=== PATIENT | female | born 1940 | race Caucasian/White ===

== ENCOUNTER → 2016-03-10 | Outpatient (CLI) | payer BC ==
[~2016-03-10] MED LIST: AMIL5TAB15 PO; ASPI325T39 PO; CHOL100010 PO; CRS10 PO; IBUP-1450 PO; INSU70IN2 SC; LOSA100T65 PO; MAGNESIUM CHLORIDE PO; METF1TAB53 PO; METO200T32 PO; NEPA0.6D OPL; PRED1SUS OPL
[2016-03-10 12:43] LABS: URINE APPEARANCE CLEAR (CLEAR); URINE BILIRUBIN NEG (NEG); URINE COLOR YELLOW; URINE EPITHELIAL CELL AUTO 20-30 /lpf (0-5); URINE NITRITE NEG (NEG); URINE SPECIFIC GRAVITY 1.016 (1.000-1.030); UROBILINOGEN NEG (NEG)
[2016-03-10 12:44] LABS: MANUAL MICROSCOPIC REQUIRED? NO; REVIEW REQ? NO
[2016-03-10 12:49] LABS: BLOOD UREA NITROGEN 15 mg/dl (7-18); CALCIUM 9.7 mg/dl (8.5-10.1); CARBON DIOXIDE 23 mmol/L (21-32); CHLORIDE 106 mmol/L (98-107); GLUCOSE 100 mg/dl (70-99); MAGNESIUM 1.7 mg/dl (1.8-2.4); PHOSPHORUS 3.4 mg/dl (2.5-4.9); POTASSIUM 4.6 mmol/L (3.5-5.1); SODIUM 138 mmol/L (136-145)
[2016-03-10 13:02] LABS: ESTIMATED AVERAGE GLUCOSE 171 mg/dl; HA1C FLAG Normal (Normal)
[2016-03-10 13:12] LABS: URINE PROTIEN/CREAT RATIO 0.3 (0-0.2); URINE TOTAL PROTEIN 39.9 mg/dl (0-11.9)
== END | disposition home or self-care (01) ==
LOC: C.LABPVFM 10:22
PROVIDERS: ATTEND Internal Medicine Nephrology
DX: E55.9 Vitamin D deficiency, unspecified (principal); E11.9 Type 2 diabetes mellitus without complications; E78.5 Hyperlipidemia, unspecified; E83.42 Hypomagnesemia; R80.9 Proteinuria, unspecified

== ENCOUNTER → 2016-04-12 | Outpatient (CLI) | payer BC ==
[~2016-04-12] MED LIST changes: +METO1TAB71 PO; -METO200T32 PO
== END | disposition home or self-care (01) ==
LOC: C.LABPVFM 11:11
PROVIDERS: ATTEND Internal Medicine Nephrology
DX: E83.42 Hypomagnesemia (principal)

== ENCOUNTER → 2016-04-28 | Outpatient (CLI) | payer BC ==
--- NOTE | 2016-04-28 15:27 | DIAGNOSTIC IMAGING REPORT ---
ABDOMEN 2VIEW W/PA CHEST RTN CLINICAL HISTORY: Abdominal pain pain COMPARISON STUDY: 11/30/2013 FINDINGS: Nonobstructive bowel pattern. Calcification immediately to the left of the L4 vertebral body felt to represent bowel content. No secondary signs of free air. A potential minimal infiltrative process left base. IMPRESSION: Minimal infiltrate left base. No acute process of the abdomen. Electronically signed by: Jamal Flores M.D. 04/28/2016 3:26 PM Dictated Date/Time: 04/28/2016 3:25 PM
== END | disposition home or self-care (01) ==
LOC: C.RADPV 14:55
PROVIDERS: ATTEND Family Medicine
DX: R10.9 Unspecified abdominal pain (principal)

== ENCOUNTER → 2016-05-04 | Outpatient (CLI) | payer BC ==
--- NOTE | 2016-05-04 09:27 | DIAGNOSTIC IMAGING REPORT ---
ABDOMINAL ULTRASOUND, RIGHT UPPER QUADRANT HISTORY: Pain. Nausea. R10.9 Abdominal [id number]. COMPARISON: None. FINDINGS: Pancreas: The pancreas demonstrates a normal echotexture. Liver: Fatty infiltration Gallbladder: Moderate sludge CBD: 5 mm Right kidney: No evidence for hydronephrosis. 2 cm mid pole cyst. IMPRESSION: 1. Gallbladder sludge. 2. Normal caliber bile ducts. 3. 2 cm mid pole right renal cyst. 4. Fatty infiltration of liver. Electronically signed by: Jamal Flores M.D. 05/04/2016 9:26 AM Dictated Date/Time: 05/04/2016 9:24 AM
== END | disposition home or self-care (01) ==
LOC: C.ULTR 08:25
PROVIDERS: ATTEND Family Medicine
DX: R10.9 Unspecified abdominal pain (principal); N28.1 Cyst of kidney, acquired; K76.0 Fatty (change of) liver, not elsewhere classified

== ENCOUNTER → 2016-05-17 | Outpatient (CLI) | payer BC ==
[2016-05-17 18:08] LABS: BLOOD UREA NITROGEN 13 mg/dl (7-18); BUN/CREATININE RATIO 12.9 (10-20); CALCIUM 9.5 mg/dl (8.5-10.1); CARBON DIOXIDE 23 mmol/L (21-32); CHLORIDE 104 mmol/L (98-107); GLUCOSE 179 mg/dl (70-99); MAGNESIUM 1.5 mg/dl (1.8-2.4); PHOSPHORUS 3.6 mg/dl (2.5-4.9); POTASSIUM 4.5 mmol/L (3.5-5.1); SODIUM 138 mmol/L (136-145)
== END | disposition home or self-care (01) ==
LOC: C.LABPVFM 13:52
PROVIDERS: ATTEND Internal Medicine Nephrology
DX: E83.42 Hypomagnesemia (principal)

== ENCOUNTER → 2016-08-23 | Outpatient (CLI) | payer BC ==
[~2016-08-23] MED LIST changes: +METO-649 PO; -METO1TAB71 PO
[2016-08-23 13:21] LABS: CALCIUM 9.6 mg/dl (8.5-10.1)
[2016-08-23 13:27] LABS: ESTIMATED AVERAGE GLUCOSE 157 mg/dl; HA1C FLAG Normal (Normal)
[2016-08-23 13:29] LABS: ALT/SGPT 44 U/L (12-78); BLOOD UREA NITROGEN 15 mg/dl (7-18); BUN/CREATININE RATIO 15.6 (10-20); CARBON DIOXIDE 21 mmol/L (21-32); CHLORIDE 109 mmol/L (98-107); CHOLESTEROL 118 mg/dl (0-200); CREATININE 0.98 mg/dl (0.60-1.20); GLUCOSE 118 mg/dl (70-99); MAGNESIUM 1.5 mg/dl (1.8-2.4); POTASSIUM 4.7 mmol/L (3.5-5.1); SODIUM 140 mmol/L (136-145); TRIGLYCERIDES 237 mg/dl (0-150); VERY LOW DENSITY LIPOPROT CALC 47 mg/dl
[2016-08-23 13:39] LABS: ALB/GLOB RATIO 0.8 (0.9-2); ALKALINE PHOSPHATASE 86 U/L (45-117); AST/SGOT 38 U/L (15-37); HDL CHOLESTEROL 40 mg/dl; LDL CHOLESTEROL CALCULATED 31 mg/dl
== END | disposition home or self-care (01) ==
LOC: C.LABPVFM 09:15
PROVIDERS: ATTEND Family Medicine
DX: Z00.00 Encounter for general adult medical examination without abnormal findings (principal); E11.9 Type 2 diabetes mellitus without complications; E83.42 Hypomagnesemia; I10 Essential (primary) hypertension; E78.5 Hyperlipidemia, unspecified; I25.10 Atherosclerotic heart disease of native coronary artery without angina pectoris; R25.2 Cramp and spasm

== ENCOUNTER → 2016-09-27 | Outpatient (CLI) | payer BC ==
[~2016-09-27] MED LIST changes: -METO-649 PO; +METO1TAB71 PO
--- NOTE | 2016-09-28 13:30 | MAMMOGRAPHY REPORT ---
BILATERAL DIGITAL SCREENING MAMMOGRAM WITH CAD: 09/27/2016 CLINICAL HISTORY: Routine screening. TECHNIQUE: Current study was also evaluated with a Computer Aided Detection (CAD) system. Bilateral CC and MLO views were obtained. COMPARISON: Comparison is made to exams dated: 06/11/2015 mammogram, 10/10/2012 mammogram, 08/09/2011 mamm ogram, 05/21/2010 mammogram, 05/14/2009 mammogram - [facility], and 03/27/2008. BREAST COMPOSITION: There are scattered areas of fibroglandular density in both breasts. FINDINGS: No suspicious masses, calcifications, or areas of architectural distortion are noted in ei ther breast. There has been no significant interval change compared to prior exams. Scattered bilater al benign-appearing calcifications are not significantly changed. A biopsy marker clip is again note d in the right upper outer quadrant from prior benign stereotactic biopsy. A linear scar marker bettina marge a scar on the left breast. IMPRESSION: ACR BI-RADS CATEGORY 2: BENIGN There is no mammographic evidence of malignancy. A 1 year screening mammogram is recommended. The pa tient will receive written notification of the results. Approximately 10% of breast cancers are not detected with mammography. A negative mammographic report should not delay biopsy if a clinically suggestive mass is present. Debra Noguera M.D. ah/:09/27/2016 16:13:01 [employer]: Barbara FISCHER(R)(M), [facility] letter sent: Normal 1/2 BI-RADS Code: ACR BI-RADS Category 2: Benign
== END | disposition home or self-care (01) ==
LOC: C.MAMM 14:23
PROVIDERS: ATTEND Family Medicine
DX: Z12.31 Encounter for screening mammogram for malignant neoplasm of breast (principal)

== ENCOUNTER → 2016-09-29 | Day surgery (SDC) | payer BC ==
[2016-09-10 15:07] VITALS: Ht 157.5 cm; Wt 81.0 kg
[~2016-09-29] VITALS: Ht 157.5 cm; Wt 81.0 kg
[~2016-09-29] MED LIST changes: +500ML BSS 0.3ML EPI 1:1000PF IRRIG ONE; +ACETAMINOPHEN 325 MG TAB PO PRN; +AMVISC PLUS 0.8ML SYRINGE INT OCU ONE; +ATROPINE SULFATE 0.1 MG/ML 5ML SYR IV PRN; +AcetaZOLAMIDE 250 MG TAB PO SCH; +BETAXOLOL HCL 0.25% OP SUSP PER DROP CHARGE OPL SCH; +BRIMONIDINE TART 0.2% OP SOLN PER DROP CHARGE ONE; +BSS FLUSH ONE; +ENDOCOAT 0.85ML SYRINGE INT OCU ONE; +EpHEDrine SULFATE INJ 50 MG/ML AMP IV PRN; +EpINEphrine INJ 1MG/ML AMP 1 MG/ML AMP ONE; +LACTATED RINGER'S 1000ML 500 ML IV SCH; +LIDOCAINE 4% OP SOLN DROP CHARGE ONE; +LIDOCAINE 4% OP SOLN DROP CHARGE OPL SCH; +LIDOCAINE HCL 1% MPF 2 ML VIAL ONE; +MIDAZOLAM HCL 1 MG/ML 2ML VIAL ONE; +MIX: 4ML BSS 1ML EPI 1:1000 PF INSTIL ONE; +MOXIFLOXACIN OPH SOLN PER DROP CHARGE ONE; +OCUCOAT 1 ML SOLN IO ONE; +POVIDONE-IODINE OP SOLN 30 ML BTL ONE; +PROPARACAINE 0.5% OP SOLN PER DROP CHARGE OPL SCH; +TOBRAMYCIN/DEXAMETHASONE OPH OINT PER APPLN CHARGE ONE
[2016-09-29] MEDS: PHENYLEPHRINE HCL 2.5% OP SOLN PER DROP CHARGE OPL SCH ×2 (08:43→08:48)
[2016-09-29] MEDS: TROPICAMIDE 1% OP SOLN PER DROP CHARGE OPL SCH ×2 (08:44→08:49)
[2016-09-29] MEDS: CYCLOPENTOLATE HCL 1% OP SOLN PER DROP CHARGE OPL SCH ×2 (08:45→08:50)
[2016-09-29] MEDS: MOXIFLOXACIN OPH SOLN PER DROP CHARGE OPL SCH ×2 (08:46→08:56)
--- NOTE | 2016-09-29 09:08 | History & Physical Bridge - SC ---
H&P Re-Evaluation Bridge Note: I have examined the patient, reviewed the History & Physical and in the interval since the performance of the History & Physical I have noted the following changes of clinical significance: No changes noted
--- NOTE | 2016-09-29 09:58 | Discharge Instructions-SurgCtr ---
Discharge Instructions Date of Service Sep 29, 2016. Visit Reason for Visit: Cataract Left Eye Discharge Discharge Diagnosis / Problem: lens implant left eye Discharge Goals Goal(s): Improve function Medications Stopped Medications Name(s): METFORMIN- LAST DOSE TUESDAY Activity Recommendations Activity Limitations: resume your previous activity Lifting Limitations: no more than 10 pounds Exercise/Sports Limitations: gradually increase as tolerated May Resume Sexual Activity: when tolerated Shower/Bathe: tomorrow Driving or Machine Use: resume 1 day after discharge Anesthesia . Post Anesthesia Instructions: If you have had General Anesthesia or IV Sedation: * Do not drive today. * Resume driving when surgeon permits. * Do not make important decisions or sign legal documents today. * Call surgeon for: 1. Temperature elevations greater than 101 degrees F. 2. Uncontrollable pain. 3. Excessive bleeding. 4. Persistent nausea and vomiting. 5. Medication intolerance (nausea, vomiting or rash). * For nausea and vomiting use only clear liquids such as: tea, soda, bouillon until nausea subsides, then gradually increase diet as tolerated. * If you have any concerns or questions, call your surgeon's office. If physician is unavailable and it is an emergency, call 911 or go to the nearest emergency room. . Instructions / Follow-Up Instructions / Follow-Up ACTIVITY RECOMMENDATIONS: * Light activities. * Mild irritation and blurred vision are common for the first few days. * You may walk outside, read, watch television. * Redness around the white part of the eye is common. MEDICATIONS: Resume previous medications unless instructed otherwise by your surgeon. * Take white Diamox (Acetazolamide) tablet at 1 pm today. Start all eye drops at 1 pm today: * Eye drops (today and tomorrow): Prednisone - one drop in operative eye every 3 hours while awake Ofloxacin - one drop in operative eye every 3 hours while awake Ilevro - one drop in operative eye once a day SPECIAL CARE INSTRUCTIONS: * Tape plastic shield over eye to sleep at night. Call your doctor at with any concerns or problems. FOLLOW UP VISIT: Follow-up with Dr Parker at [place] office as scheduled. Diet Recommendations Home Diet: no limitations Procedures Procedures Performed: cataract extraction with lens implant Pending Studies Studies pending at discharge: no Medical Emergencies . Who to Call and When: Medical Emergencies: If at any time you feel your situation is an emergency, please call 911 immediately. . Non-Emergent Contact Non-Emergency issues call your: Terminal Supervisor Call Non-Emergent contact if: your pain is not controlled [phone] . . "Provider Documentation" section prepared by Keyur Parker. .
--- NOTE | 2016-09-29 10:00 | [facility] Operative Report ---
Operative Report Date of Service Sep 29, 2016. Operative Report 1. PREOPERATIVE DIAGNOSIS: Senile nuclear cataract, left eye. 2. POSTOPERATIVE DIAGNOSIS: Senile nuclear cataract, left eye. 3. PROCEDURE: Phacoemulsification of left cataract with posterior chamber lens implant, type Davide, model [id number], power +22.0 diopters. ANESTHESIA: Local standby. SURGEON: Dr. Parker. COMPLICATIONS: None. OPERATING TIME: 10 minutes. 4. OPERATION AND FINDINGS: DESCRIPTION OF PROCEDURE: The left pupil was dilated. The anesthetic was administered using a topical technique. The left eye was prepped and draped. A speculum was placed. A clear corneal incision was formed. The chamber was filled with Amvisc Plus and Endocoat. Epinephrine solution was used. A paracentesis was placed. A capsulorrhexis was performed. The nucleus was hydrodissected. The lens was removed with phacoemulsification. Time was 5.89 seconds. The aspiration unit was used to remove the cortex. The capsule was filled with Amvisc Plus. The lens implant was folded and placed into the capsule. The lens implant was rotated to the correct position. The incision was hydrated. The Amvisc was aspirated. The wound was secure. The chamber was deep. The pupil was round. Brimonidine, TobraDex ointment and Vigamox solution were placed. The speculum was removed. The patient was returned to the Recovery Room in stable condition. I attest to the content of the Intraoperative Record and any orders documented therein. Any exceptions are noted below. The scribe's documentation has been prepared in my presence, under my direction and personally reviewed by me in its entirety. I confirm that the note above accurately reflects all work, treatment, procedures, and medical decision making performed by me. I personally scribed for Keyur Parker M.D. ([email or web address]) on 09/29/16 at 10:00. Electronically submitted by Adamaris VIRGEN).
[2016-09-29 10:03] VITALS: TEMP 36.3
--- NOTE | 2016-09-29 10:14 | Anesthesia Progress Nt - [facility] ---
Anesthesia Post Op Note Date & Time Sep 29, 2016 at 10:14 Vital Signs Pain Intensity: 0 Vital Signs Past 12 Hours Date Time Temp Pulse Resp B/P (MAP) Pulse Ox O2 Delivery O2 Flow Rate FiO2 09/29/16 10:03 36.3 65 16 139/57 (84) 95 Room Air 09/29/16 08:35 36.8 62 16 145/70 (95) 95 Room Air Notes Mental Status: alert / awake / arousable, participated in evaluation Pt Amnestic to Procedure: Yes Nausea / Vomiting: adequately controlled Pain: adequately controlled Airway Patency, RR, SpO2: stable & adequate BP & HR: stable & adequate Hydration State: stable & adequate Anesthetic Complications: no major complications apparent
[2016-09-29 10:48] VITALS: BP 108/70; PULSE 58; O2SAT 96
== END | disposition home or self-care (01) ==
LOC: X.SURG 08:20
PROVIDERS: ATTEND Specialist
DX: H25.12 Age-related nuclear cataract, left eye (principal); I10 Essential (primary) hypertension; I51.9 Heart disease, unspecified

== ENCOUNTER → 2016-10-20 | Day surgery (SDC) | payer BC ==
[2016-10-08 11:51] VITALS: Ht 157.5 cm; Wt 80.0 kg
[~2016-10-20] VITALS: Ht 157.5 cm; Wt 80.0 kg
[~2016-10-20] MED LIST changes: -BETAXOLOL HCL 0.25% OP SUSP PER DROP CHARGE OPL SCH; +BETAXOLOL HCL 0.25% OP SUSP PER DROP CHARGE OPR SCH; -LIDOCAINE 4% OP SOLN DROP CHARGE OPL SCH; +LIDOCAINE 4% OP SOLN DROP CHARGE OPR SCH; +NURSING VERBAL MED ORDER ONE; +ONDANSETRON INJ 2 MG/ML 2 ML VIAL IV PRN; -PROPARACAINE 0.5% OP SOLN PER DROP CHARGE OPL SCH; +PROPARACAINE 0.5% OP SOLN PER DROP CHARGE OPR SCH
[2016-10-20] MEDS: PHENYLEPHRINE HCL 2.5% OP SOLN PER DROP CHARGE OPR SCH ×2 (07:48→07:53)
[2016-10-20] MEDS: TROPICAMIDE 1% OP SOLN PER DROP CHARGE OPR SCH ×2 (07:49→07:54)
[2016-10-20] MEDS: CYCLOPENTOLATE HCL 1% OP SOLN PER DROP CHARGE OPR SCH ×2 (07:50→07:55)
[2016-10-20] MEDS: MOXIFLOXACIN OPH SOLN PER DROP CHARGE OPR SCH ×2 (07:51→08:03)
[2016-10-20 09:06] VITALS: TEMP 36.7
--- NOTE | 2016-10-20 09:08 | Discharge Instructions-SurgCtr ---
Discharge Instructions Date of Service Oct 20, 2016. Visit Reason for Visit: Right Cataract Discharge Discharge Diagnosis / Problem: lens implant right eye Discharge Goals Goal(s): Improve function Medications Stopped Medications Name(s): metformin stopped last dose on tuesday. Activity Recommendations Activity Limitations: resume your previous activity Lifting Limitations: no more than 10 pounds Exercise/Sports Limitations: gradually increase as tolerated May Resume Sexual Activity: when tolerated Shower/Bathe: tomorrow Driving or Machine Use: resume 1 day after discharge Anesthesia . Post Anesthesia Instructions: If you have had General Anesthesia or IV Sedation: * Do not drive today. * Resume driving when surgeon permits. * Do not make important decisions or sign legal documents today. * Call surgeon for: 1. Temperature elevations greater than 101 degrees F. 2. Uncontrollable pain. 3. Excessive bleeding. 4. Persistent nausea and vomiting. 5. Medication intolerance (nausea, vomiting or rash). * For nausea and vomiting use only clear liquids such as: tea, soda, bouillon until nausea subsides, then gradually increase diet as tolerated. * If you have any concerns or questions, call your surgeon's office. If physician is unavailable and it is an emergency, call 911 or go to the nearest emergency room. . Instructions / Follow-Up Instructions / Follow-Up ACTIVITY RECOMMENDATIONS: * Light activities. * Mild irritation and blurred vision are common for the first few days. * You may walk outside, read, watch television. * Redness around the white part of the eye is common. MEDICATIONS: Resume previous medications unless instructed otherwise by your surgeon. * Take white Diamox (Acetazolamide) tablet at 1 pm today. Start all eye drops at 1 pm today: * Eye drops (today and tomorrow): Prednisone - one drop in operative eye every 3 hours while awake Ofloxacin - one drop in operative eye every 3 hours while awake Ilevro - one drop in operative eye once a day SPECIAL CARE INSTRUCTIONS: * Tape plastic shield over eye to sleep at night. Call your doctor at with any concerns or problems. FOLLOW UP VISIT: Follow-up with Dr Parker at [place] office as scheduled. Diet Recommendations Home Diet: no limitations Procedures Procedures Performed: Right Cataract Phacoemulsification With Intraocular Lens Implant, Toric Lens Pending Studies Studies pending at discharge: no Medical Emergencies . Who to Call and When: Medical Emergencies: If at any time you feel your situation is an emergency, please call 911 immediately. . Non-Emergent Contact Non-Emergency issues call your: Supervisor Coal Handling Call Non-Emergent contact if: your pain is not controlled [phone] . . "Provider Documentation" section prepared by Keyur Parker. .
--- NOTE | 2016-10-20 09:10 | [facility] Operative Report ---
Operative Report Date of Service Oct 20, 2016. Operative Report 1. PREOPERATIVE DIAGNOSIS: Senile nuclear cataract, right eye. 2. POSTOPERATIVE DIAGNOSIS: Senile nuclear cataract, right eye. 3. PROCEDURE: Phacoemulsification of right cataract with posterior chamber lens implant, type Davide, model [id number], power +22.0 diopters. ANESTHESIA: Local standby. SURGEON: Dr. Parker. COMPLICATIONS: None. OPERATING TIME: 10 minutes. 4. OPERATION AND FINDINGS: DESCRIPTION OF PROCEDURE: The right pupil was dilated. The anesthetic was administered using a topical technique. The right eye was prepped and draped. A speculum was placed. A clear corneal incision was formed. The chamber was filled with Amvisc Plus and Endocoat. Epinephrine solution was used. A paracentesis was placed. A capsulorrhexis was performed. The nucleus was hydrodissected. The lens was removed with phacoemulsification. Time was 4.62 seconds. The aspiration unit was used to remove the cortex. The capsule was filled with Amvisc Plus. The lens implant was folded and placed into the capsule. The lens was rotated to the correct position. The incision was hydrated. The Amvisc was aspirated. The wound was secure. The chamber was deep. The pupil was round. Brimonidine, TobraDex ointment and Vigamox solution were placed. The speculum was removed. The patient was returned to the Recovery Room in stable condition. I attest to the content of the Intraoperative Record and any orders documented therein. Any exceptions are noted below. The scribe's documentation has been prepared in my presence, under my direction and personally reviewed by me in its entirety. I confirm that the note above accurately reflects all work, treatment, procedures, and medical decision making performed by me. I personally scribed for Keyur Parker M.D. ([email or web address]) on 10/20/16 at 09:10. Electronically submitted by Adamaris Kay ([email or web address]).
[2016-10-20 09:34] VITALS: BP 119/73; PULSE 60; O2SAT 93
[2016-10-20] MEDS: PROPARACAINE 0.5% OP SOLN PER DROP CHARGE OPR SCH ×2 (09:38→09:43)
--- NOTE | 2016-10-20 09:51 | Anesthesia Progress Nt - [facility] ---
Anesthesia Post Op Note Date & Time Oct 20, 2016 at 09:51 Vital Signs Pain Intensity: 0 Vital Signs Past 12 Hours Date Time Temp Pulse Resp B/P (MAP) Pulse Ox O2 Delivery O2 Flow Rate FiO2 10/20/16 09:06 36.7 66 16 147/81 (103) 94 Room Air 10/20/16 07:38 36.5 59 18 133/84 (100) 96 Room Air Notes Mental Status: alert / awake / arousable, participated in evaluation Pt Amnestic to Procedure: Yes Nausea / Vomiting: adequately controlled Pain: adequately controlled Airway Patency, RR, SpO2: stable & adequate BP & HR: stable & adequate Hydration State: stable & adequate Anesthetic Complications: no major complications apparent
== END | disposition home or self-care (01) ==
LOC: X.SURG 07:10
PROVIDERS: ATTEND Specialist
DX: H25.11 Age-related nuclear cataract, right eye (principal); Z79.4 Long term (current) use of insulin; Z79.84 Long term (current) use of oral hypoglycemic drugs; Z79.899 Other long term (current) drug therapy

== ENCOUNTER → 2016-11-23 | Outpatient (CLI) | payer BC ==
[~2016-11-23] MED LIST changes: -500ML BSS 0.3ML EPI 1:1000PF IRRIG ONE; -ACETAMINOPHEN 325 MG TAB PO PRN; -AMVISC PLUS 0.8ML SYRINGE INT OCU ONE; -ATROPINE SULFATE 0.1 MG/ML 5ML SYR IV PRN; -AcetaZOLAMIDE 250 MG TAB PO SCH; -BETAXOLOL HCL 0.25% OP SUSP PER DROP CHARGE OPR SCH; -BRIMONIDINE TART 0.2% OP SOLN PER DROP CHARGE ONE; -BSS FLUSH ONE; -ENDOCOAT 0.85ML SYRINGE INT OCU ONE; -EpHEDrine SULFATE INJ 50 MG/ML AMP IV PRN; -EpINEphrine INJ 1MG/ML AMP 1 MG/ML AMP ONE; -LACTATED RINGER'S 1000ML 500 ML IV SCH; -LIDOCAINE 4% OP SOLN DROP CHARGE ONE; -LIDOCAINE 4% OP SOLN DROP CHARGE OPR SCH; -LIDOCAINE HCL 1% MPF 2 ML VIAL ONE; -MIDAZOLAM HCL 1 MG/ML 2ML VIAL ONE; -MIX: 4ML BSS 1ML EPI 1:1000 PF INSTIL ONE; -MOXIFLOXACIN OPH SOLN PER DROP CHARGE ONE; -NURSING VERBAL MED ORDER ONE; -OCUCOAT 1 ML SOLN IO ONE; -ONDANSETRON INJ 2 MG/ML 2 ML VIAL IV PRN; -POVIDONE-IODINE OP SOLN 30 ML BTL ONE; -PROPARACAINE 0.5% OP SOLN PER DROP CHARGE OPR SCH; -TOBRAMYCIN/DEXAMETHASONE OPH OINT PER APPLN CHARGE ONE
== END | disposition home or self-care (01) ==
LOC: C.LABPVFM 15:14
PROVIDERS: ATTEND Specialist
DX: H53.8 Other visual disturbances (principal); M31.6 Other giant cell arteritis

== ENCOUNTER → 2017-01-24 | Outpatient (CLI) | payer BC ==
[~2017-01-24] MED LIST changes: +METO-649 PO; -METO1TAB71 PO
[2017-01-24 18:08] LABS: BLOOD UREA NITROGEN 18 mg/dl (7-18); BUN/CREATININE RATIO 18.3 (10-20); CARBON DIOXIDE 26 mmol/L (21-32); CHLORIDE 107 mmol/L (98-107); GLUCOSE 167 mg/dl (70-99); MAGNESIUM 1.5 mg/dl (1.8-2.4); POTASSIUM 5.2 mmol/L (3.5-5.1); SODIUM 141 mmol/L (136-145)
[2017-01-25 05:48] LABS: ESTIMATED AVERAGE GLUCOSE 148 mg/dl; HA1C FLAG Normal (Normal)
== END | disposition home or self-care (01) ==
LOC: C.LABPVFM 11:33
PROVIDERS: ATTEND Family Medicine
DX: E11.40 Type 2 diabetes mellitus with diabetic neuropathy, unspecified (principal); E83.42 Hypomagnesemia

== ENCOUNTER → 2017-02-04 | Outpatient (CLI) | payer BC | END | disposition home or self-care (01) | LOC: C.LABPVFM 13:23 | PROVIDERS: ATTEND Family Medicine | DX: E87.5 Hyperkalemia (principal) ==

== ENCOUNTER → 2017-04-14 | Outpatient (CLI) | payer BC ==
[~2017-04-14] MED LIST changes: -METO-649 PO; +METO200T32 PO
== END | disposition home or self-care (01) ==
LOC: C.LABPVFM 10:02
PROVIDERS: ATTEND Internal Medicine Cardiovascular Disease
DX: E78.5 Hyperlipidemia, unspecified (principal)

== ENCOUNTER → 2017-05-10 | Outpatient (CLI) | payer BC ==
--- NOTE | 2017-05-10 10:30 | DIAGNOSTIC IMAGING REPORT ---
GALLBLADDER-ABD LIMITED CLINICAL HISTORY: R93.2, R11.0, R10.11 abdominal pain. COMPARISON STUDY: May 04, 2016 FINDINGS: The pancreas appears sonographically normal. The liver is of increased echogenicity, nonspecific finding most often seen in hepatic steatosis. There is no ductal dilatation. The common bile duct measures 3 mm. There is a 2.9 cm right renal cyst. There is a mobile echogenic sludge ball within the gallbladder measuring 2 cm. IMPRESSION: 1. 2 cm echogenic mobile lesion within the gallbladder, consistent with a sludge ball. This did not shadow. 2. No ductal dilatation 3. Increased hepatic echogenicity, likely secondary to hepatic steatosis Electronically signed by: Christian March M.D. 05/10/2017 10:29 AM Dictated Date/Time: 05/10/2017 10:25 AM
== END | disposition home or self-care (01) ==
LOC: C.ULTR 09:52
PROVIDERS: ATTEND Registered Nurse
DX: R11.0 Nausea (principal); R10.11 Right upper quadrant pain; R93.2 Abnormal findings on diagnostic imaging of liver and biliary tract

== ENCOUNTER → 2017-05-23 | Outpatient (CLI) | payer BC ==
[2017-05-23 17:20] LABS: HEMOGLOBIN 14.5 g/dL (12.0-16.0); MEAN CELL VOLUME 89.2 fL (80-100); MEAN CORPUSCULAR HEMOGLOBIN 30.8 pg (25-34); MEAN CORPUSCULAR HGB CONC 34.5 g/dl (32-36); PLATELET COUNT 213 K/uL (130-400); RED CELL DISTRIBUTION WIDTH CV 14.1 % (11.5-14.5); RED CELL DISTRIBUTION WIDTH SD 46.3 fL (36.4-46.3); WHITE BLOOD COUNT 9.97 K/uL (4.8-10.8)
[2017-05-23 17:49] LABS: ALBUMIN 3.7 gm/dl (3.4-5.0); ALT/SGPT 67 U/L (12-78); AST/SGOT 58 U/L (15-37); BLOOD UREA NITROGEN 15 mg/dl (7-18); CALCIUM 10.3 mg/dl (8.5-10.1); CARBON DIOXIDE 24 mmol/L (21-32); CREATININE 0.92 mg/dl (0.60-1.20); GLUCOSE 164 mg/dl (70-99); POTASSIUM 4.8 mmol/L (3.5-5.1); SODIUM 137 mmol/L (136-145)
[2017-05-23 17:51] LABS: ALKALINE PHOSPHATASE 106 U/L (45-117); TOTAL PROTEIN 8.4 gm/dl (6.4-8.2)
== END | disposition home or self-care (01) ==
LOC: C.LABPVFM 14:26
PROVIDERS: ATTEND Family Medicine
DX: E55.9 Vitamin D deficiency, unspecified (principal)

== ENCOUNTER 2017-06-08 07:08 | Day surgery (SDC) | payer BC ==
[2017-06-02 14:33] VITALS: BMI 32.0
--- NOTE | 2017-06-02 15:01 | PAT Medication Instructions ---
Service Date Jun 02, 2017. Current Home Medication List Amiloride Hcl (Amiloride Hcl), 20 MG PO QAM Aspirin (Aspirin Ec), 325 MG PO QAM Cholecalciferol (Vitamin D3), 1 TAB PO BID Ibuprofen (Advil), 400 MG PO PRN Insulin Isophan/Regular (Novolin 70/30), 74 UNITS SC BID Losartan Potassium (Cozaar), 100 MG PO QAM Metformin Hcl (Glucophage Ext Rel), 1,000 MG PO BID Metoprolol Succinate (Toprolxl (Toprol-Xl), 200 MG PO QAM Rosuvastatin Calcium (Crestor), 10 MG PO Q2D [Magnesium Chloride], 1,040 MG PO BID Medication Instructions For Your Scheduled Surgery - Continue as directed: Rosuvastatin Calcium (Crestor), 10 MG PO Q2D - Check with surgeon for instructions: Ibuprofen (Advil), 400 MG PO PRN - Hold the following medications the morning of surgery: Cholecalciferol (Vitamin D3), 1 TAB PO BID Losartan Potassium (Cozaar), 100 MG PO QAM Metformin Hcl (Glucophage Ext Rel), 1,000 MG PO BID [Magnesium Chloride], 1,040 MG PO BID - Take the following medications the morning of surgery with a sip of water: Metoprolol Succinate (Toprolxl (Toprol-Xl), 200 MG PO QAM Amiloride Hcl (Amiloride Hcl), 20 MG PO QAM Aspirin (Aspirin Ec), 325 MG PO QAM (okay to continue per surgeon/bilingual call center representative) - Take the following medications as scheduled the night before surgery: [Magnesium Chloride], 1,040 MG PO BID Insulin Isophan/Regular (Novolin 70/30), 74 UNITS SC BID Cholecalciferol (Vitamin D3), 1 TAB PO BID Metformin Hcl (Glucophage Ext Rel), 1,000 MG PO BID - For Insulin Dependent Diabetic patients: Test blood sugar A.M. of surgery. - If Blood sugar greater than 150, take half of your regular dose of: Insulin Isophan/Regular (Novolin 70/30), take 37 units - If Blood sugar less than 150, do not take any: Insulin Isophan/Regular (Novolin 70/30) If you have any questions please call us at [phone] or [phone] or [phone]
[2017-06-02 15:55] LABS: BASO % 0.2 %; BASO ABS # 0.02 K/uL (0-0.2); EOS % 1.7 %; EOS ABS # 0.16 K/uL (0-0.5); HEMATOCRIT 40.3 % (37-47); HEMOGLOBIN 13.8 g/dL (12.0-16.0); IG# 0.02 K/uL (0.00-0.02); LYMPH % 32.9 %; LYMPH ABS # 3.15 K/uL (1.2-3.4); MEAN CELL VOLUME 88.4 fL (80-100); MEAN CORPUSCULAR HEMOGLOBIN 30.3 pg (25-34); MEAN CORPUSCULAR HGB CONC 34.2 g/dl (32-36); MEAN PLATELET VOLUME 9.4 fL (7.4-10.4); MONO % 4.8 %; MONO ABS # 0.46 K/uL (0.11-0.59); NEUT % 60.2 %; NEUT ABS # 5.75 K/uL (1.4-6.5); PLATELET COUNT 182 K/uL (130-400); RED CELL DISTRIBUTION WIDTH CV 14.4 % (11.5-14.5); RED CELL DISTRIBUTION WIDTH SD 46.2 fL (36.4-46.3); WHITE BLOOD COUNT 9.56 K/uL (4.8-10.8)
[2017-06-02 16:02] LABS: ALBUMIN 3.6 gm/dl (3.4-5.0); CALCIUM 10.3 mg/dl (8.5-10.1); CREATININE 1.01 mg/dl (0.60-1.20); POTASSIUM 4.7 mmol/L (3.5-5.1)
[2017-06-02 16:06] LABS: TOTAL PROTEIN 7.9 gm/dl (6.4-8.2)
--- NOTE | 2017-06-02 16:08 | DIAGNOSTIC IMAGING REPORT ---
CHEST 2 VIEWS ROUTINE CLINICAL HISTORY: Preoperative evaluation. COMPARISON STUDY: Chest radiograph April 28, 2016 and November 30, 2013. FINDINGS: Lung volumes are at the lower limits of normal. There is no consolidation or evidence for pulmonary edema. Cardiomediastinal silhouette is normal. Appearance of the chest is unchanged. IMPRESSION: No acute cardiopulmonary findings. Electronically signed by: Sergey Kirkland M.D. 06/02/2017 4:07 PM Dictated Date/Time: 06/02/2017 4:06 PM
[2017-06-03 06:46] LABS: HEMOGLOBIN A1C 7.3 % (4.5-5.6)
[~2017-06-08] VITALS: Ht 157.5 cm; Wt 81.0 kg
[~2017-06-08 07:08] MED LIST changes: +CEFOXITIN IV 2,000 MG in DEXTROSE 5% 50ML 50 ML IV SCH; +CHOL1000 PO; -CHOL100010 PO; +IBUP-1050 PO; -IBUP-1450 PO; +LACTATED RINGER'S 1000ML 1,000 ML IV SCH; -NEPA0.6D OPL; -PRED1SUS OPL
[2017-06-08] MEDS ORDERED: NURSING VERBAL MED ORDER ONE ×3 (07:45→11:00)
[2017-06-08] MEDS ORDERED: ONDANSETRON INJ 2 MG/ML 2 ML VIAL IV PRN ×2 (08:00→10:45)
[2017-06-08] MEDS ORDERED: PHENYLEPHRINE 100MCG/ML 5ML SYR IV PRN (08:00)
[2017-06-08] MEDS ORDERED: EpHEDrine SULFATE INJ 50 MG/ML AMP IV PRN (08:00)
[2017-06-08] MEDS ORDERED: HYDROmorphone INJ 0.5 MG/0.5 ML SYR IV PRN (08:00)
[2017-06-08] MEDS ORDERED: ATROPINE SULFATE 0.1 MG/ML 5ML SYR IV PRN (08:00)
[2017-06-08 08:07] VITALS: BP 149/64; PULSE 69; TEMP 36.9; O2SAT 97; Ht 157.5 cm; Wt 81.0 kg
[2017-06-08] MEDS ORDERED: FENTANYL CITRATE INJ 50 MCG/1 ML 2 ML VIAL ONE ×3 (08:07→10:09)
[2017-06-08] MEDS ORDERED: LIDOCAINE HCL 2% 2 ML VIAL (20MG/ML) ONE (08:07)
[2017-06-08] MEDS ORDERED: PROPOFOL IV EMULSION 10 MG/ML 20 ML VIAL IV ONE (08:07)
[2017-06-08] MEDS ORDERED: DEXAMETHASONE SOD INJ 4 MG/ML VIAL ONE (08:11)
[2017-06-08] MEDS ORDERED: ONDANSETRON INJ 2 MG/ML 2 ML VIAL ONE ×2 (08:11→09:30)
[2017-06-08] MEDS ORDERED: BUPIVACAINE 0.5 % 5 MG/1 ML MPF 30ML VIAL ONE (08:11)
[2017-06-08] MEDS ORDERED: SODIUM CHLORIDE 0.9% 500ML 200 ML IV SCH (08:30)
[2017-06-08] MEDS ORDERED: DEXTROSE 5% IV SCH (08:30)
--- NOTE | 2017-06-08 08:55 | History & Physical Bridge Note ---
H&P Re-Evaluation Bridge Note: I have examined the patient, reviewed the History & Physical and in the interval since the performance of the History & Physical I have noted the following changes of clinical significance: Plan for laparoscopic cholecystectomy with possible cholangiogram. mild chronic panniculitis, okay to proceed. No changes noted
[2017-06-08] MEDS ORDERED: KETAMINE HCL INJ 50 MG/ML 10 ML VIAL ONE (09:57)
[2017-06-08] MEDS ORDERED: MIDAZOLAM HCL 1 MG/ML 2ML VIAL ONE (09:57)
[2017-06-08] MEDS ORDERED: NEOSTIGMINE METHYLSULFATE 5 MG/5 ML SYR ONE (10:21)
[2017-06-08] MEDS ORDERED: ROCURONIUM BROMIDE 10 MG/ML 5 ML VIAL IV ONE (10:21)
[2017-06-08] MEDS ORDERED: GLYCOPYRROLATE INJ 0.2 MG/ML VIAL ONE (10:21)
--- NOTE | 2017-06-08 10:25 | [facility] Post Operative Brief Note ---
Immediate Operative Summary Operative Date Jun 08, 2017. Pre-Operative Diagnosis Cholelithasis Post-Operative Diagnosis Cholelithiasis Procedure(s) Performed Laparoscopic Cholecystectomy Surgeon Dr. Renard Gruber Qm Consultant Surgeon(s) Hedy Espinosa PA-C Estimated Blood Loss 5 mL Findings Consistent with Post-Op Diagnosis Window of safety obtained. Chronic cholecystitis. Specimens Permanent specimens A: Gallbladder and contents Drains None Anesthesia Type General Complication(s) none Disposition Accompanied Pt To Recover: no Disposition: Recovery Room / PACU
--- NOTE | 2017-06-08 10:30 | [facility] Operative Report ---
Operative Report Operative Date Jun 08, 2017. Pre-Operative Diagnosis Cholelithasis Post-Operative Diagnosis Chronic cholecystitis, cholelithiasis Procedure(s) Performed Laparoscopic cholecystectomy Surgeon Dr. Renard Gruber [place] [facility] Surgeon(s) Hedy Espinosa PA-C Estimated Blood Loss 5 mL Findings Chronic cholecystitis. Window of safety obtained. Good hemostasis. Specimens Permanent specimens A: Gallbladder and contents Drains None Anesthesia General Complication(s) None Disposition Recovery Room / PACU Indications 76-year-old female with symptomatic cholelithiasis versus gallbladder sludge and possible chronic cholecystitis, plan for laparoscopic cholecystectomy with possible cholangiogram. The risks of the procedure were discussed, all questions were answered, and the patient agreed to proceed with surgery as planned. Description of Procedure The patient was properly identified, consented, and taken to the operating room where she was placed in the supine position. General endotracheal anesthesia was induced. SCDs and a safety belt were placed. Preoperative antibiotics were administered. The patient's abdomen was prepped and draped in the standard sterile fashion. A surgical timeout was performed and all parties were in agreement that this was the correct patient and procedure to be performed and we continued as planned. An incision was made superior and to the left of the umbilicus overlying the rectus muscle and the Veress needle was inserted. Saline drop test confirmed entry into the peritoneum. The abdomen was insufflated with carbon dioxide which the patient tolerated without incident. The abdomen was then entered using the Optiview technique and a 5 mm trocar. The laparoscope was inserted and no damage from initial trocar or Veress needle placement was noted, no gross abnormalities were noted within the 4 quadrants of the abdomen. An 11 mm port was placed in the subxiphoid position and two 5 mm ports were then placed in the right subcostal position. The patient was placed in reverse Trendelenburg position and rotated towards the left. The gallbladder showed evidence of chronic cholecystitis. The dome of the gallbladder was retracted towards the left upper quadrant and the infundibulum was retracted toward the right lower quadrant revealing Calot's triangle. Peritoneal attachments were taken down with electrocautery and blunt dissection. The cystic duct and artery were circumferentially dissected. A window of safety was obtained showing the cystic duct entering the gallbladder with no aberrant structures noted. The cystic duct and artery were doubly clipped and divided. The gallbladder was then lifted off the gallbladder fossa with electrocautery. The gallbladder was placed in an Endo Catch bag and removed through the umbilical port site. The right upper quadrant was irrigated and hemostasis was found to be good. 5 mm trochars were removed under direct visualization and the abdomen was allowed to collapse. The umbilical port site fascia was closed with 0 Vicryl suture. The wound was irrigated, and the skin of all ports was closed with 4-0 Monocryl subcuticular sutures. Dermabond was placed over the wounds. The patient was extubated in the operating room and taken to the PACU where she recovered without apparent incident. All sponge, instrument and needle counts were correct at the conclusion of the procedure. The patient tolerated the procedure well. The physician's pastry assistant was present and scrubbed for the entirety of the procedure. She was essential in positioning the patient, prepping and draping, entry into the abdomen, driving a laparoscope, removal of the gallbladder, closure of the incisions, and placement of the dressings. I attest to the content of the Intraoperative Record and any orders documented therein. Any exceptions are noted below.
[2017-06-08] MEDS ORDERED: SODIUM CHLORIDE 0.9% 1000ML 1,000 ML IV SCH (10:41)
--- NOTE | 2017-06-08 10:44 | Discharge Instructions ---
Discharge Instructions Date of Service Jun 08, 2017. Admission Reason for Admission: Cholelithiasis, Diabetes Discharge Discharge Diagnosis / Problem: Cholelithiasis, Diabetes Discharge Goals Goal(s): Decrease discomfort, Improve function Activity Recommendations Activity Limitations: as noted below Lifting Limitations: no more than 10 pounds Exercise/Sports Limitations: until after follow-up appointment May Resume Sexual Activity: after follow-up appointment Shower/Bathe: tomorrow Driving or Machine Use: resume 3 days after discharge . Instructions / Follow-Up Instructions / Follow-Up You have surgical glue, Dermabond, over your incisions. You may shower tomorrow , but do not soak or scrub your incisions. Please follow-up with Dr. Gruber in the [facility] in 1-2 weeks. Please call the office at [phone] to make an appointment if you do not have one already. Please call the office with any questions or concerns. Current Hospital Diet Patient's current hospital diet: Discharge Diet Recommended Diet: Regular Diet Procedures Procedures Performed: Laparoscopic Cholecystectomy Pending Studies Studies pending at discharge: yes List of pending studies: Pathology report. Laboratory Results Hemoglobin A1c Test 06/02/17 15:23 Range/Units Estimated Average Glucose 163 mg/dl Hemoglobin A1c 7.3 H 4.5-5.6 % Lipid Panel Test 04/14/17 10:05 Range/Units Triglycerides Level 213 H 0-150 mg/dl Cholesterol Level 122 0-200 mg/dl HDL Cholesterol 41 mg/dl Cholesterol/HDL Ratio 3.0 LDL Cholesterol, Calculated 38 mg/dl Medical Emergencies . Who to Call and When: Medical Emergencies: If at any time you feel your situation is an emergency, please call 911 immediately. . Non-Emergent Contact Non-Emergency issues call your: Primary Care Provider, Surgeon Call Non-Emergent contact if: temperature is above 101.5, your pain is not controlled, wound has increased drainage, wound has increased redness . "Provider Documentation" section prepared by eHdy Espinosa. .
[2017-06-08] MEDS ORDERED: TRAM-453 PO (10:52)
[2017-06-08] MEDS ORDERED: SCOPOLAMINE 1.5 MG TDSY TD ONE (11:00)
[2017-06-08] MEDS ORDERED: PROMETHAZINE HCL INJ 6.25 MG in SODIUM CHLORIDE 0.9% 50ML 50 ML IV ONE (11:15)
[2017-06-08 11:38] VITALS: BP 166/65; PULSE 59; TEMP 36.7; O2SAT 92
[2017-06-08 12:06] VITALS: BP 161/77; PULSE 58; TEMP 36.6; O2SAT 95
--- NOTE | 2017-06-08 13:36 | Anesthesiology Progress Note ---
Anesthesia Post Op Note Date & Time Jun 08, 2017 at 13:36 Vital Signs Pain Intensity: 0 Vital Signs Past 12 Hours Date Time Temp Pulse Resp B/P (MAP) Pulse Ox O2 Delivery O2 Flow Rate FiO2 06/08/17 12:06 36.6 58 18 161/77 95 Room Air 06/08/17 11:38 36.7 59 18 166/65 92 Room Air 06/08/17 11:35 36.8 94 Room Air 06/08/17 11:29 53 16 94 06/08/17 11:29 56 16 06/08/17 11:28 162/63 06/08/17 11:24 75 13 06/08/17 11:24 77 13 93 06/08/17 11:23 68 16 94 06/08/17 11:23 66 16 06/08/17 11:21 163/80 06/08/17 11:19 170/75 06/08/17 11:18 74 20 06/08/17 11:18 73 20 94 06/08/17 11:16 181/80 06/08/17 11:13 69 16 06/08/17 11:13 69 16 100 06/08/17 11:12 82 14 100 06/08/17 11:12 82 14 06/08/17 11:11 181/82 06/08/17 11:07 76 16 06/08/17 11:07 77 16 99 06/08/17 11:06 182/77 06/08/17 11:02 79 17 06/08/17 11:02 78 17 99 06/08/17 11:01 83 14 187/87 98 06/08/17 11:01 83 14 06/08/17 10:56 89 14 188/85 97 06/08/17 10:56 89 14 06/08/17 10:55 189/86 06/08/17 10:52 192/87 06/08/17 10:51 90 14 97 06/08/17 10:51 90 14 06/08/17 10:46 75 18 06/08/17 10:46 75 18 156/67 97 06/08/17 10:41 79 10 163/87 96 06/08/17 10:41 36.2 76 18 163/87 96 Oxymask 10 06/08/17 10:41 79 10 06/08/17 08:07 36.9 69 20 149/64 (92) 97 Room Air Notes Mental Status: alert / awake / arousable, participated in evaluation Pt Amnestic to Procedure: Yes Nausea / Vomiting: adequately controlled Pain: adequately controlled Airway Patency, RR, SpO2: stable & adequate BP & HR: stable & adequate Hydration State: stable & adequate Anesthetic Complications: no major complications apparent
[2017-06-08] MEDS ORDERED: CHECK SCOPOLAMINE PATCH PLACEMENT SCH (16:00)
== END 2017-06-08 12:30 | disposition home or self-care (01) ==
LOC: C.ACU 07:08
PROVIDERS: ATTEND Surgery
DX: K80.10 Calculus of gallbladder with chronic cholecystitis without obstruction (principal); I25.10 Atherosclerotic heart disease of native coronary artery without angina pectoris; I10 Essential (primary) hypertension; K76.0 Fatty (change of) liver, not elsewhere classified; G62.9 Polyneuropathy, unspecified; L71.9 Rosacea, unspecified; E11.40 Type 2 diabetes mellitus with diabetic neuropathy, unspecified; K57.30 Diverticulosis of large intestine without perforation or abscess without bleeding; E78.5 Hyperlipidemia, unspecified; Z91.041 Radiographic dye allergy status; Z88.5 Allergy status to narcotic agent; Z96.659 Presence of unspecified artificial knee joint; Z79.82 Long term (current) use of aspirin; Z82.49 Family history of ischemic heart disease and other diseases of the circulatory system; Z80.3 Family history of malignant neoplasm of breast

== ENCOUNTER → 2017-10-12 | Outpatient (CLI) | payer BC ==
[~2017-10-12] MED LIST changes: -CEFOXITIN IV 2,000 MG in DEXTROSE 5% 50ML 50 ML IV SCH; -LACTATED RINGER'S 1000ML 1,000 ML IV SCH
[2017-10-12 13:18] LABS: HEMOGLOBIN A1C 6.6 % (4.5-5.6)
[2017-10-12 13:23] LABS: BLOOD UREA NITROGEN 14 mg/dl (7-18); CALCIUM 9.4 mg/dl (8.5-10.1); CARBON DIOXIDE 16 mmol/L (21-32); CREATININE 0.88 mg/dl (0.60-1.20); GLUCOSE 118 mg/dl (70-99); POTASSIUM 4.6 mmol/L (3.5-5.1); SODIUM 136 mmol/L (136-145)
== END | disposition home or self-care (01) ==
LOC: C.LABPVFM 09:46
PROVIDERS: ATTEND Internal Medicine Cardiovascular Disease
DX: E78.5 Hyperlipidemia, unspecified (principal); E11.40 Type 2 diabetes mellitus with diabetic neuropathy, unspecified; I10 Essential (primary) hypertension; E83.42 Hypomagnesemia

== ENCOUNTER → 2017-10-19 | Outpatient (CLI) | payer BC ==
--- NOTE | 2017-10-20 15:40 | MAMMOGRAPHY REPORT ---
BILATERAL DIGITAL SCREENING MAMMOGRAM TOMOSYNTHESIS WITH CAD: 10/19/2017 CLINICAL HISTORY: Routine screening. Patient has no complaints. TECHNIQUE: The study was acquired using full field digital technology and interpreted from soft copy. Breast tomosynthesis in addition to standard 2D mammography was performed. Current study was also ev aluated with a Computer Aided Detection (CAD) system. COMPARISON: Comparison is made to exams dated: 09/27/2016 mammogram, 06/30/2015 mammogram, 06/17/2015 m ammogram, 06/11/2015 mammogram, 10/10/2012 mammogram, and 08/09/2011 mammogram - [facility] er. BREAST COMPOSITION: There are scattered areas of fibroglandular density in both breasts. FINDINGS: There are moderate vascular calcifications in the breasts. Diffuse bilateral benign rim an d rodlike secretory calcifications. Stable metallic biopsy marker clip in the right upper outer quad rant. No suspicious mass, architectural distortion or cluster of microcalcifications is seen. IMPRESSION: ACR BI-RADS CATEGORY 1: NEGATIVE There is no mammographic evidence of malignancy. A 1 year screening mammogram is recommended.( 019) The patient will receive written notification of the results. Some breast cancers are not detected with mammography. A negative mammographic report should not garfield y biopsy if a clinically suggestive mass is present. Breanna Ocasio M.D. ay/:10/19/2017 16:14:59 Door Operator: Yesenia Dodd, RT(R)(M)(BD), [facility] letter sent: Normal 1/2 BI-RADS Code: ACR BI-RADS Category 1: Negative
== END | disposition home or self-care (01) ==
LOC: C.MAMM 15:46
PROVIDERS: ATTEND Family Medicine
DX: Z12.31 Encounter for screening mammogram for malignant neoplasm of breast (principal)

== ENCOUNTER 2020-02-04 15:00 | Inpatient (IN) ==
[2020-02-04] MEDS ORDERED: NITROGLYCERIN 2% OINTMENT 30GM TUBE EXT ONE (15:14)
--- NOTE | 2020-02-04 15:16 | Emergency Department Note ---
Impression & Plan ACS (acute coronary syndrome), SOB (shortness of breath) ED Provider Note INFORMANT: Patient ED PROVIDER(S): Tim Barcenas MD CHIEF COMPLAINT: Shortness of breath PLAN: Disposition: Admitted Condition: Guarded MEDICAL DECISION MAKING: Patient presented and was acutely ill on CPAP. Her history was concerning for flash pulmonary edema and probable ACS. Her ECG prehospital was very concerning for significant ST segment depression. She was doing better on the CPAP and nitroglycerin. The patient was continued on respiratory support with BiPAP. She was doing well with this. Her respiratory rate improved as did her oxygenation. She had an inch of paste applied. Chest x-ray shows pulmonary edema. Blood work revealed a slight leukocytosis which I suspect is a stress response. She had no flulike symptoms or fever prior to. Patient's troponin was elevated raising additional concerns for ACS. Covid testing negative. I did consult with Dr. Palacios of cardiology. He agreed with the treatment, recommended anticoagulation and the team will consult after internal medicine does the admission. IV Lasix was ordered as well as IV heparin. I did discuss the case with of the hospitalist service. Patient was evaluated by the team in the ER for admission. I did attempt to wean the BiPAP however the patient still had a moderate work of breathing and had not fully diuresed. She was placed back on BiPAP and admitted. Triage Nursing notes reviewed and agree them. Additional history obtained from EMS Prior medical records reviewed regarding her cardiac history and nonischemic ECGs. Vital Signs: reviewed and remarkable for hypertension and not tachypnea Differential diagnosis: Cardiac ischemia, flash pulmonary edema, CHF, aortic dissection, pulmonary embolism, pneumothorax, pneumonia, pericarditis, myocarditis, esophageal rupture, GERD, cholecystitis, pancreatitis, musculoskeletal, as well as other pathologies. Diagnostics interpreted by me: ECG: Twelve-lead ECG reveals sinus tachycardia at 111 bpm. Low voltage QRS. Inferolateral ST segment depressions concerning for subendocardial injury. No PVCs. Normal axis. When compared to prior ECG of [address] segment changes are new. Cardiac Monitoring: Cardiac monitoring ordered by me: The patient was placed on continuous cardiac monitoring and observed. It revealed a normal sinus rhythm at 99 beats per minute without ectopy or evidence of dysrhythmia. Imaging studies: Portable chest x-ray was performed and reveals mild cardiomegaly and pulmonary edema concerning for CHF. Consultation(s): [facility] cardiology [facility] hospitalist service HPI: The patient is a 79 year old female who presents to the Emergency Room with complaints of shortness of breath. This started acutely this afternoon. The patient also notes the following associated symptoms, chest discomfort.. The patient has been given nitro x3 and CPAP by EMS which helped significantly for relieving factors. Current pain is rated as 0/10. Patient was moderately hypertensive with a systolic blood pressure of 190 prior to the nitroglycerin. After 3 nitroglycerin the blood pressure dropped down to 164. She symptoma tically was doing much better with the CPAP. The patient notes exertional chest pain on and off for the last several months. Pt denies LOC, headache, fevers, chills, diaphoresis, visual changes, neck pain, nausea, vomiting, abdominal pain, back pain, melena, hematochezia, urinary symptoms, numbness, weakness, lymphadenopathy, rash, or other complaints. ROS: See above HPI for pertinent positives & negatives. A total of 10 systems reviewed and were otherwise negative. PAST MEDICAL HISTORY:See Below, CAD PAST SURGICAL HISTORY:See Below, coronary stent FAMILY HISTORY:See Below SOCIAL HISTORY:See Below, no smoking HOME MEDICATIONS:See Below ALLERGIES:See Below VITALS:See Below PHYSICAL EXAMINATION: GENERAL: Awake, alert, uncomfortable-appearing, in mild distress. CPAP in place. HENT: Normocephalic, atraumatic. Oropharynx unremarkable. EYES: Normal conjunctiva. Sclera non-icteric. NECK: Inspection normal. Non-tender. Supple. No nuchal rigidity. FROM. No masses. RESPIRATORY: Relatively clear to auscultation. No wheezes. Few rales. Normal respiratory effort. CARDIAC: Normal rate. Normal rhythm. No murmurs. No rubs. Extremities warm and well perfused. Pulses equal. No JVD. GI: Soft, non-distended. No tenderness to palpation. No rebound or guarding. No masses. RECTAL: Deferred. MUSCULOSKELETAL: Atraumatic. Chest examination reveals no tenderness. The back is symmetrical on inspection without obvious abnormality. There is no CVA tenderness to palpation. No joint edema. LOWER EXTREMITIES: Calves are equal size bilaterally and non-tender. No edema. No discoloration. NEURO: Normal sensorium. No sensory or motor deficits noted. SKIN: No rash or jaundice noted. ED COURSE: Critical Care: I have personally spent greater than45 minutes of critical care time in the direct management of this patient. This includes bedside care, interpretation of diagnostic studies, and testing, discussion with consultants, patient, and other required patient management activities. These minutes are in excess of all separately billable procedures. Tim Barcenas MD Past Med/Surg History Medical History (Updated 02/04/20 @ 17:36 by Wally Del Valle) CAD (coronary artery disease) 1996 - stents x 2, Left circumflex & RCA Chronic diarrhea DM (diabetes mellitus) Elevated vitamin B12 level HTN (hypertension) Hyperlipidemia Hypomagnesemia Left knee pain Lumbar stenosis with neurogenic claudication Myalgia Osteoarthritis Routine health maintenance Tremor Surgical History History of cataract surgery History of hemilaminectomy History of laparoscopic cholecystectomy History of spinal surgery S/P coronary artery stent placement Status post right partial knee replacement Family History (Updated 02/04/20 @ 18:08 by Wally Del Valle) Mother Cardiac disorder Hypertension Breast cancer S/P CABG (coronary artery bypass graft) Sister Hypertension Inflammatory bowel disease Cancer Father Cancer Family/Other Breast cancer Cousin Myocardial infarction Denies family history of Ovarian cancer Prostate cancer Crohn's disease Colorectal cancer Social History (Updated 02/04/20 @ 18:08 by Walyl Del Valle) Smoking Status: Never smoker Hx Alcohol Use: No Hx Substance Use: No marital status: Single marital status details: Current Living Situation: Alone current occupational status: 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 How many Children do You have: 2 How many Children do You have Comment: sons Feels Safe at Home: Yes Dental Care, Regularly: Yes Physical Activity Frequency: Other Physical Activity Frequency Comment: usual walking Seatbelt Use: always Sunscreen Use: No Allergies Allergies Allergy/AdvReac Type Severity Reaction Status Date / Time bee venom protein (honey bee) Allergy Unknown SWELLING Verified 02/04/20 17:20 WITH BEE STING/WASP Iodinated Contrast Media Allergy Unknown HIVES Verified 02/04/20 17:20 Macrolide Antibiotics Allergy Unknown MYCIN Verified 02/04/20 17:20 TOPICAL-RASH morphine Allergy Unknown NAUSEA AND Verified 02/04/20 17:20 VOMITING naproxen Allergy Unknown RED AND Verified 02/04/20 17:20 PRICKLY HANDS neomycin Allergy Unknown MYCIN Verified 02/04/20 17:20 TOPICAL-RASH codeine AdvReac Mild NAUSEA Verified 02/04/20 17:20 Home Meds Home Medications Medication Instructions Recorded Confirmed aspirin 325 mg tablet,delayed 325 mg PO QAM tab 10/10/18 02/04/20 release cholecalciferol (vitamin D3) 50 2,000 units PO QAM tab 10/13/18 02/04/20 mcg (2,000 unit) tablet magnesium chloride 64 mg 128 mg PO BID #120 tab 10/13/18 02/04/20 (magnesium chloride) tablet,delayed release nitroglycerin 0.4 mg sublingual 0.4 mg SL UD PRN #2 tab 10/13/18 02/04/20 tablet insulin NPH and regular human 0 units SQ BID 02/04/20 02/04/20 [Novolin 70/30 U-100 Insulin] Previous Rx's Medication Instructions Recorded blood sugar diagnostic #100 ea 11/09/18 metronidazole 1 % topical gel 1 appln TOPICAL .COMPLEX PRN #60 gm 11/09/18 insulin syringe-needle U-100 1 mL #200 ea 02/05/19 31 gauge x 5/16" rosuvastatin 10 mg tablet 10 mg PO Q2D #45 tab 06/19/19 losartan 50 mg tablet 50 mg PO QAM #90 tab 07/10/19 metoprolol succinate 200 mg 200 mg PO QAM #90 tab 07/10/19 tablet,extended release 24 hr metformin 1,000 mg tablet 1,000 mg PO BID #180 tab 01/28/20 Results & Data (ED) Vital Signs Vital Signs - 24 hr 02/04/20 15:07 02/04/20 15:08 02/04/20 15:09 Temperature 36.9 C Temperature Source Oral Pulse Rate 110 H 109 H 105 H Pulse Rate from SpO2 Sensor 109 H Pulse Rhythm Respiratory Rate 33 H 25 H 32 H Respiratory Effort / Characteristics Spontaneous Short of Breath Respiratory Depth Normal Respiratory Pattern Tachypnea Regular Blood Pressure 164/88 H 164/88 H Blood Pressure Mean 123 113 Pulse Oximetry 94 97 97 Oxygen Delivery Method BiPAP BiPAP Oxygen Flow Rate Fraction of Inspired Oxygen 70 70 70 Sepsis Recent Fever Within 48 Hours No Sepsis New/Unexplained Change in Mental Status No Sepsis Action Taken by Nursing Physician Notified 02/04/20 15:15 02/04/20 15:20 02/04/20 15:31 Temperature Temperature Source Pulse Rate 106 H 104 H 106 H Pulse Rate from SpO2 Sensor 106 H 105 H Pulse Rhythm Regular Respiratory Rate 23 24 21 Respiratory Effort / Characteristics Respiratory Depth Respiratory Pattern Blood Pressure 165/98 H 154/92 H Blood Pressure Mean 111 104 Pulse Oximetry 96 95 99 Oxygen Delivery Method BiPAP BiPAP BiPAP Oxygen Flow Rate Fraction of Inspired Oxygen 70 Sepsis Recent Fever Within 48 Hours Sepsis New/Unexplained Change in Mental Status Sepsis Action Taken by Nursing 02/04/20 15:45 02/04/20 16:00 02/04/20 16:09 Temperature Temperature Source Pulse Rate 104 H 102 H Pulse Rate from SpO2 Sensor 104 H 103 H Pulse Rhythm Respiratory Rate 21 21 Respiratory Effort / Characteristics Respiratory Depth Respiratory Pattern Blood Pressure 157/102 H 141/92 H Blood Pressure Mean 130 104 Pulse Oximetry 96 96 96 Oxygen Delivery Method BiPAP BiPAP BiPAP Oxygen Flow Rate Fraction of Inspired Oxygen 70 70 Sepsis Recent Fever Within 48 Hours Sepsis New/Unexplained Change in Mental Status Sepsis Action Taken by Nursing 02/04/20 16:15 02/04/20 16:25 02/04/20 16:30 Temperature Temperature Source Pulse Rate 103 H 105 H 104 H Pulse Rate from SpO2 Sensor 103 H 105 H 105 H Pulse Rhythm Respiratory Rate 20 20 22 Respiratory Effort / Characteristics Respiratory Depth Respiratory Pattern Blood Pressure 158/107 H 150/100 H 148/96 H Blood Pressure Mean 127 126 118 Pulse Oximetry 97 98 97 Oxygen Delivery Method BiPAP BiPAP BiPAP Oxygen Flow Rate Fraction of Inspired Oxygen 70 70 70 Sepsis Recent Fever Within 48 Hours Sepsis New/Unexplained Change in Mental Status Sepsis Action Taken by Nursing 02/04/20 16:45 02/04/20 17:00 02/04/20 17:06 Temperature Temperature Source Pulse Rate 115 H 116 H 112 H Pulse Rate from SpO2 Sensor 114 H 117 H Pulse Rhythm Respiratory Rate 19 28 H 22 Respiratory Effort / Characteristics Non-Labored Spontaneous Respiratory Depth Normal Respiratory Pattern Regular Blood Pressure 148/140 H 149/91 H Blood Pressure Mean 143 117 Pulse Oximetry 88 L 89 L 97 Oxygen Delivery Method Oxymask Oxymask Oxygen Flow Rate 8 8 Fraction of Inspired Oxygen 60 Sepsis Recent Fever Within 48 Hours Sepsis New/Unexplained Change in Mental Status Sepsis Action Taken by Nursing 02/04/20 17:15 02/04/20 17:30 02/04/20 17:45 Temperature Temperature Source Pulse Rate 109 H 106 H 109 H Pulse Rate from SpO2 Sensor 109 H 109 H 109 H Pulse Rhythm Respiratory Rate 21 22 15 Respiratory Effort / Characteristics Respiratory Depth Respiratory Pattern Blood Pressure 142/90 H 140/79 140/80 Blood Pressure Mean 110 93 107 Pulse Oximetry 95 94 97 Oxygen Delivery Method BiPAP BiPAP BiPAP Oxygen Flow Rate Fraction of Inspired Oxygen 60 60 60 Sepsis Recent Fever Within 48 Hours Sepsis New/Unexplained Change in Mental Status Sepsis Action Taken by Nursing 02/04/20 18:00 02/04/20 18:15 Temperature Temperature Source Pulse Rate 106 H 110 H Pulse Rate from SpO2 Sensor 106 H 110 H Pulse Rhythm Respiratory Rate 18 24 Respiratory Effort / Characteristics Respiratory Depth Respiratory Pattern Blood Pressure 138/83 148/85 H Blood Pressure Mean 108 101 Pulse Oximetry 94 97 Oxygen Delivery Method BiPAP BiPAP Oxygen Flow Rate Fraction of Inspired Oxygen 60 60 Sepsis Recent Fever Within 48 Hours Sepsis New/Unexplained Change in Mental Status Sepsis Action Taken by Nursing Laboratory Data Result diagrams: 02/04/20 15:18 02/04/20 16:22 Lab Results 02/04/20 02/04/20 02/04/20 Range/Units 15:18 15:18 15:18 WBC 12.50 H (4.8-10.8) K/uL RBC 5.32 (4.2-5.4) M/uL Hgb 16.0 (12.0-16.0) g/dL Hct 47.8 H (37-47) % MCV 89.8 (80-100) fL MCH 30.1 (25-34) pg MCHC 33.5 (32-36) g/dL RDW Std Deviation 48.1 H (36.4-46.3) fL RDW Coeff of Socrates 14.8 H (11.5-14.5) % Plt Count 193 (130-400) K/uL MPV 9.9 (7.4-10.4) fL Immature Gran % (Auto) 0.5 % Neut % (Auto) 66.8 % Lymph % (Auto) 26.7 % [place] % (Auto) 4.6 % Eos % (Auto) 1.2 % Baso % (Auto) 0.2 % Neut # (Auto) 8.36 H (1.4-6.5) K/uL Lymph # (Auto) 3.34 (1.2-3.4) K/uL [place] # (Auto) 0.57 (0.11-0.59) K/uL Eos # (Auto) 0.15 (0-0.5) K/uL Baso # (Auto) 0.02 (0-0.2) K/uL Immature Gran # (Auto) 0.06 H (0.00-0.02) K/uL PT 11.1 (9.0-12.0) Seconds INR 1.1 (0.9-1.1) APTT 22.6 (21.0-31.0) Seconds PTT Ratio 0.8 Sodium 141 (136-145) mmol/L Potassium (3.5-5.1) mmol/L Chloride 107 (98-107) mmol/L Carbon Dioxide 21 (21-32) mmol/L Anion Gap 13.0 H (3-11) BUN 17 (7-18) mg/dl Creatinine 1.46 H (0.6-1.2) mg/dl Est Cr Clr Drug Dosing Not Reportable Est GFR ( Amer) 39.5 Est GFR (Non-Af Amer) 34.1 BUN/Creatinine Ratio 11.4 (10-20) Glucose 257 H (70-99) mg/dl Calcium 9.6 (8.5-10.1) mg/dl Magnesium (1.8-2.4) mg/dl Total Bilirubin 0.8 (0.2-1) mg/dl AST (15-37) U/L ALT 36 (12-78) U/L Alkaline Phosphatase 100 (45-117) U/L Troponin I 0.603 H* (0-0.045) ng/ml NT-Pro-B Natriuret Pep 104 (0-1800) pg/ml Total Protein 7.8 (6.4-8.2) gm/dl Albumin 3.1 L (3.4-5.0) gm/dl Globulin 4.7 H (2.5-4.0) gm/dl Albumin/Globulin Ratio 0.7 L (0.9-2) Urine Color Urine Appearance (Clear) Urine pH (4.5-7.5) Ur Specific [place] (1.000-1.030) Urine Protein (Negative) Urine Glucose (UA) (Negative) Urine Ketones (Negative) Urine Blood (Negative) Urine Nitrite (Negative) Urine Bilirubin (Negative) Urine Urobilinogen (Negative) Ur Leukocyte Esterase (Negative) Urine WBC (Auto) (0-5) /hpf Urine RBC (Auto) (0-4) /hpf U Hyaline Cast (Auto) (0-5) /lpf U Epithel Cells (Auto) (0-5) /lpf Urine Bacteria (Auto) (Negative) Ur Renal Epithelial Cell COVID-19 Eval Order COVID-19 PCR (Negative) Influenza Type A (PCR) (Neg) Influenza Type B (PCR) (Neg) RSV (RT-PCR) (Neg) 02/04/20 02/04/20 02/04/20 Range/Units 15:30 15:30 16:22 WBC (4.8-10.8) K/uL RBC (4.2-5.4) M/uL Hgb (12.0-16.0) g/dL Hct (37-47) % MCV (80-100) fL MCH (25-34) pg MCHC (32-36) g/dL RDW Std Deviation (36.4-46.3) fL RDW Coeff of Socrates (11.5-14.5) % Plt Count (130-400) K/uL MPV (7.4-10.4) fL Immature Gran % (Auto) % Neut % (Auto) % Lymph % (Auto) % [place] % (Auto) % Eos % (Auto) % Baso % (Auto) % Neut # (Auto) (1.4-6.5) K/uL Lymph # (Auto) (1.2-3.4) K/uL [place] # (Auto) (0.11-0.59) K/uL Eos # (Auto) (0-0.5) K/uL Baso # (Auto) (0-0.2) K/uL Immature Gran # (Auto) (0.00-0.02) K/uL PT (9.0-12.0) Seconds INR (0.9-1.1) APTT (21.0-31.0) Seconds PTT Ratio Sodium (136-145) mmol/L Potassium 5.3 H (3.5-5.1) mmol/L Chloride (98-107) mmol/L Carbon Dioxide (21-32) mmol/L Anion Gap (3-11) BUN (7-18) mg/dl Creatinine (0.6-1.2) mg/dl Est Cr Clr Drug Dosing Est GFR ( Amer) Est GFR (Non-Af Amer) BUN/Creatinine Ratio (10-20) Glucose (70-99) mg/dl Calcium (8.5-10.1) mg/dl Magnesium (1.8-2.4) mg/dl Total Bilirubin (0.2-1) mg/dl AST 61 H (15-37) U/L ALT (12-78) U/L Alkaline Phosphatase (45-117) U/L Troponin I (0-0.045) ng/ml NT-Pro-B Natriuret Pep (0-1800) pg/ml Total Protein (6.4-8.2) gm/dl Albumin (3.4-5.0) gm/dl Globulin (2.5-4.0) gm/dl Albumin/Globulin Ratio (0.9-2) Urine Color Urine Appearance (Clear) Urine pH (4.5-7.5) Ur Specific [place] (1.000-1.030) Urine Protein (Negative) Urine Glucose (UA) (Negative) Urine Ketones (Negative) Urine Blood (Negative) Urine Nitrite (Negative) Urine Bilirubin (Negative) Urine Urobilinogen (Negative) Ur Leukocyte Esterase (Negative) Urine WBC (Auto) (0-5) /hpf Urine RBC (Auto) (0-4) /hpf U Hyaline Cast (Auto) (0-5) /lpf U Epithel Cells (Auto) (0-5) /lpf Urine Bacteria (Auto) (Negative) Ur Renal Epithelial Cell COVID-19 Eval Order [facility] at [facility] COVID-19 PCR NEGATIVE (Negative) Influenza Type A (PCR) Negative (Neg) Influenza Type B (PCR) Negative (Neg) RSV (RT-PCR) Negative (Neg) 02/04/20 02/04/20 Range/Units 16:22 17:05 WBC (4.8-10.8) K/uL RBC (4.2-5.4) M/uL Hgb (12.0-16.0) g/dL Hct (37-47) % MCV (80-100) fL MCH (25-34) pg MCHC (32-36) g/dL RDW Std Deviation (36.4-46.3) fL RDW Coeff of Socrates (11.5-14.5) % Plt Count (130-400) K/uL MPV (7.4-10.4) fL Immature Gran % (Auto) % Neut % (Auto) % Lymph % (Auto) % [place] % (Auto) % Eos % (Auto) % Baso % (Auto) % Neut # (Auto) (1.4-6.5) K/uL Lymph # (Auto) (1.2-3.4) K/uL [place] # (Auto) (0.11-0.59) K/uL Eos # (Auto) (0-0.5) K/uL Baso # (Auto) (0-0.2) K/uL Immature Gran # (Auto) (0.00-0.02) K/uL PT (9.0-12.0) Seconds INR (0.9-1.1) APTT (21.0-31.0) Seconds PTT Ratio Sodium (136-145) mmol/L Potassium (3.5-5.1) mmol/L Chloride (98-107) mmol/L Carbon Dioxide (21-32) mmol/L Anion Gap (3-11) BUN (7-18) mg/dl Creatinine (0.6-1.2) mg/dl Est Cr Clr Drug Dosing Est GFR ( Amer) Est GFR (Non-Af Amer) BUN/Creatinine Ratio (10-20) Glucose (70-99) mg/dl Calcium (8.5-10.1) mg/dl Magnesium 1.5 L (1.8-2.4) mg/dl Total Bilirubin (0.2-1) mg/dl AST (15-37) U/L ALT (12-78) U/L Alkaline Phosphatase (45-117) U/L Troponin I (0-0.045) ng/ml NT-Pro-B Natriuret Pep (0-1800) pg/ml Total Protein (6.4-8.2) gm/dl Albumin (3.4-5.0) gm/dl Globulin (2.5-4.0) gm/dl Albumin/Globulin Ratio (0.9-2) Urine Color Yellow Urine Appearance Cloudy A (Clear) Urine pH 5.0 (4.5-7.5) Ur Specific [place] 1.020 (1.000-1.030) Urine Protein 3+ H (Negative) Urine Glucose (UA) Trace H (Negative) Urine Ketones Trace H (Negative) Urine Blood 1+ H (Negative) Urine Nitrite Negative (Negative) Urine Bilirubin Negative (Negative) Urine Urobilinogen Negative (Negative) Ur Leukocyte Esterase Negative (Negative) Urine WBC (Auto) 1-5 (0-5) /hpf Urine RBC (Auto) 0-4 (0-4) /hpf U Hyaline Cast (Auto) 10-30 H (0-5) /lpf U Epithel Cells (Auto) >30 H (0-5) /lpf Urine Bacteria (Auto) 1+ H (Negative) Ur Renal Epithelial Cell Not Reportable COVID-19 Eval Order COVID-19 PCR (Negative) Influenza Type A (PCR) (Neg) Influenza Type B (PCR) (Neg) RSV (RT-PCR) (Neg) Administered Medications Heparin Sodium/Dextrose (Heparin Sodium/Dextrose) 25,000 units in 500 mls @ 16 mls/hr IV .Q24H BRENDON; Protocol Stop: 03/05/20 16:29 Last Admin: 02/04/20 16:45 Dose: 800 units/hr, 16 mls/hr Documented by: [id number] Cosigned by: [id number] Discontinued Medications Furosemide (Furosemide 40 Mg/4 Ml Vial) 40 mg IV NOW STA Stop: 02/04/20 16:24 Last Admin: 02/04/20 16:53 Dose: 40 mg Documented by: [id number] Heparin Sodium (Porcine) (Heparin Bolus Ed Use Only) 4,000 units IV NOW STA Stop: 02/04/20 16:30 Last Admin: 02/04/20 16:45 Dose: 4,000 units Documented by: [id number] Cosigned by: [id number] Heparin Sodium/Dextrose (Heparin Iv Low Dose With Bolus) 1 ea IV NOW STA; Protocol Stop: 02/04/20 16:24 Last Admin: 02/04/20 16:48 Dose: Not Given Documented by: [id number] Nitroglycerin (Nitroglycerin 2% Ointment 30gm Tube) 1 inch EXT NOW ONE Stop: 02/04/20 15:15 Last Admin: 02/04/20 15:20 Dose: 1 inch Documented by: [id number] Discharge Plan Visit Data Chief Complaint: Shortness of Breath/Dyspnea ED Provider: Tim Barcenas Discharge Problem: ACS (acute coronary syndrome), SOB (shortness of breath) Forms Stand Alone Forms: My [facility] [place] [facility] Prescriptions Prescriptions: No Action (DME) OneTouch Ultra Blue Test Strip strip See Dose Instructions .ROUTE .MEDSUPPLY Qty: 100 RF: 1 metronidazole 1 % gel 1 appln topical .COMPLEX PRN (Reason: rosacea) Qty: 60 RF: 1 (DME) insulin syringe-needle U-100 [Ultra Comfort Insulin Syringe] 1 mL 31 gauge x 5/16 syringe See Dose Instructions .ROUTE .MEDSUPPLY Qty: 200 RF: 3 rosuvastatin 10 mg tablet 10 mg PO Q2D Qty: 45 RF: 3 losartan 50 mg tablet 50 mg PO QAM Qty: 90 RF: 3 metoprolol succinate 200 mg tablet extended release 24 hr 200 mg PO QAM Qty: 90 RF: 3 metformin 1,000 mg tablet 1,000 mg PO BID Qty: 180 RF: 1 aspirin 325 mg tablet,delayed release (DR/EC) 325 mg PO QAM RF: 0 cholecalciferol (vitamin D3) 2,000 unit tablet 2,000 units PO QAM RF: 0 magnesium chloride 64 mg tablet,delayed release (DR/EC) 128 mg PO BID Qty: 120 RF: 0 nitroglycerin 0.4 mg tablet, sublingual 0.4 mg SL UD PRN (Reason: chest pain) Qty: 2 RF: 0 Novolin 70/30 U-100 Insulin 100 unit/mL (70-30) suspension 0 units SQ BID RF: 0
[2020-02-04 15:28] LABS: Basophils # (auto) 0.02 K/uL (0-0.2); Basophils % (auto) 0.2 %; Eosinophils # (auto) 0.15 K/uL (0-0.5); Eosinophils % (auto) 1.2 %; Hematocrit (blood only) 47.8 % (37-47); Immature Granulocytes # (auto) 0.06 K/uL (0.00-0.02); Immature Granulocytes % (auto) 0.5 %; Lymphocytes # (auto) 3.34 K/uL (1.2-3.4); Lymphocytes % (auto) 26.7 %; Mean Corpuscular Hemoglobin 30.1 pg (25-34); Mean Corpuscular Hgb Conc 33.5 g/dL (32-36); Mean Corpuscular Volume 89.8 fL (80-100); Mean Platelet Volume 9.9 fL (7.4-10.4); Monocytes # (auto) 0.57 K/uL (0.11-0.59); Monocytes % (auto) 4.6 %; Neutrophils # (auto) 8.36 K/uL (1.4-6.5); Neutrophils % (auto) 66.8 %; Platelet Count 193 K/uL (130-400); RDW Coefficient of Variation 14.8 % (11.5-14.5); RDW Standard Deviation 48.1 fL (36.4-46.3); Red Blood Count 5.32 M/uL (4.2-5.4)
[2020-02-04 15:39] LABS: INR 1.1 (0.9-1.1); Partial Thromboplastin Ratio 0.8; Partial Thromboplastin Time 22.6 Seconds (21.0-31.0); Prothrombin Time 11.1 Seconds (9.0-12.0)
--- NOTE | 2020-02-04 15:39 | XRay Report ---
SINGLE VIEW CHEST CLINICAL HISTORY: Dyspnea. FINDINGS: An AP, portable, upright chest radiograph is compared to study dated 04/28/2016. The examina tion is degraded by portable technique and apical lordotic positioning. The heart is mildly enlarged noting atherosclerotic calcification of the thoracic aorta. There is prominence of the pulmonary vasc ulature. Hazy airspace opacities are seen throughout both lungs. No large pleural effusion or pneumot horax is identified. The skeletal structures are osteopenic. The bony thorax is grossly intact. IMPRESSION: 1. Cardiomegaly with prominence of the pulmonary vasculature. Correlate clinically for evidence of co ngestive failure. 2. Hazy airspace opacities are seen throughout both lungs. Differential considerations include pulmon donna edema and/or an infectious/inflammatory pneumonitis. Clinical correlation will be required. ACT 112: Negative or not required by law. Electronically signed by: Houston Roque M.D. 02/04/2020 3:38 PM
[2020-02-04 16:05] LABS: Alanine Aminotransferase 36 U/L (12-78); Albumin Globulin Ratio 0.7 (0.9-2); Albumin Level 3.1 gm/dl (3.4-5.0); Alkaline Phosphatase 100 U/L (45-117); BUN Creatinine Ratio 11.4 (10-20); Bilirubin,Total 0.8 mg/dl (0.2-1); Blood Urea Nitrogen 17 mg/dl (7-18); Calcium 9.6 mg/dl (8.5-10.1); Carbon Dioxide 21 mmol/L (21-32); Chloride 107 mmol/L (98-107); Est GFR (African American) 39.5; Est GFR (Non-African American) 34.1; Globulin 4.7 gm/dl (2.5-4.0); Glucose 257 mg/dl (70-99); NT Pro B Type Natriuretic Pept 104 pg/ml (0-1800); Sodium 141 mmol/L (136-145); Total Protein 7.8 gm/dl (6.4-8.2); Troponin I 0.603 ng/ml (0-0.045)
[2020-02-04 16:19] LABS: Influenza A virus by PCR Negative (Neg); Influenza B virus by PCR Negative (Neg); RSV by PCR Negative (Neg); SARS CoV2 RNA(COVID-19) InHosp NEGATIVE (Negative)
[2020-02-04] MEDS ORDERED: Heparin IV Low Dose WITH Bolus IV STA (16:23)
[2020-02-04] MEDS ORDERED: FUROSEMIDE 40 MG/4 ML VIAL IV STA (16:23)
--- NOTE | 2020-02-04 16:28 | Electrocardiogram Report ---
Test Reason : Blood Pressure : / mmHG Vent. Rate : 111 BPM Atrial Rate : 111 BPM P-R Int : 170 ms QRS Dur : 072 ms QT Int : 330 ms P-R-T Axes : 078 064 187 degrees QTc Int : 448 ms Sinus tachycardia Low voltage QRS Marked ST abnormality, possible inferolateral subendocardial injury Abnormal ECG Confirmed by Jose Palacios ([id number]) on 02/04/2020 4:28:33 PM Referred By: REFERRED SELF Confirmed By:Puneet Palacios
[2020-02-04] MEDS ORDERED: Heparin BOLUS **ED Use Only IV STA (16:29)
[2020-02-04] MEDS ORDERED: HEPARIN SODIUM/DEXTROSE 25,000 UNITS/500 ML BAG IV SCH ×2 (16:30)
[2020-02-04 16:53] LABS: Potassium 5.3 mmol/L (3.5-5.1)
[2020-02-04 17:29] LABS: Appearance Urine Cloudy (Clear); Bilirubin Urine Negative (Negative); Blood Urine 1+ (Negative); Color Urine Yellow; Epithelial Cell Urine Auto >30 /lpf (0-5); Glucose Urine UA Trace (Negative); Ketones Urine Trace (Negative); Leukocyte Esterase Urine Negative (Negative); Nitrite Urine Negative (Negative); Protein Urine 3+ (Negative); RBC Urine Automated 0-4 /hpf (0-4); Urobilinogen Urine Negative (Negative)
--- NOTE | 2020-02-04 17:30 | History & Physical Report ---
Date of Service February 04, 2020 Assessment & Plan (1) Acute respiratory failure with hypoxia: 2nd to flash pulmonary edema/acute CHF in setting of NSTEMI. Continue BIPAP. Diurese. Wean O2 as tolerated. Of note - COVID-19, flu, and RSV negative. Doubt infectious cause of hypoxia. (2) NSTEMI (non-ST elevated myocardial infarction): Symptoms, EKG findings, and elevated troponin all consistent with NSTEMI. Place on heparin infusion. Topical nitrates. Continue beta vj. Change statin from 10mg qod to 20mg daily. Check lipids/hemoglobin a1c in am. Telemetry. Echocardiogram. Continue aspirin. [facility] [place] [facility] to see in am. Will need cardiac catheterization this admission to evaluate coronaries. Resume ARB if BPs will allow. (3) Acute CHF: 2nd to flash pulmonary edema in setting of NSTEMI. Lasix IV given in ER. Follow UOP response. Likely to need additional lasix in am. Echo. Continue beta vj. Resume ARB if BPs will allow. Continue topical nitrates. (4) CAD (coronary artery disease): Known CAD with prior stent placement in the late at [facility]. No heart cath since that time. See "NSTEMI" above. (5) DM (diabetes mellitus): Will consult pharmacy for glycemic management/assistance. Check hemoglobin a1c in am. Check BSGs q6h while NPO. (6) Hyperlipidemia: Check lipids am. Change crestor from qod dosing to daily and increase to 20mg. (7) Hypomagnesemia: chronic. 2nd to diarrhea? renal wasting? other? mag sulfate IV now. repeat mag level am. (8) Hyperkalemia: 2nd to ABHIJEET in setting of acute CHF/NSTEMI. Lasix. repeat BMP am. (9) Acute kidney injury: 2nd to prerenal physiology -- acute CHF/NSTEMI leading to hypoperfusion. Should improve with Rx of NSTEMI and diuresis. BMP am. (10) DVT prophylaxis: heparin infusion. son updated by phone. History of Present Illness Chief Complaint: acute onset of chest pain/dyspnea Primary Care Provider: Randi Kraft MD 79yo female with known h/o CAD s/p 2 stents 1996 (RCA and L Cx) - followed by Dr Wenceslao Darby [facility] [place] [facility] - presents with acute onset of chest pain/dyspnea. [place], and upon arrival back at her home, she developed the chest pain/dyspnea. Chest pain was b/l chest. No radiation to the arm or jaw. Described it as a "squeeze". Pain was very severe. She could not find her nitroglycerin for the pain. 911 was called and EMS was summoned to her home. In the ambulance she was placed on BIPAP for respiratory distress and given 3 SL nitro tabs. The BIPAP and SL nitro helped her dyspnea and chest pain. i Upon arrival to [facility] she had a positive troponin and CXR showed pulmonary edema. Lasix 40mg IV x 1 was given. Had elevated BP and thus was given nitropaste 1" in the ER for her blood pressure and chest pain. During my assessment she was chest pain free and breathing was more comfortable. Patient mentions that for 1-2 months she has had intermittent chest pain with dyspnea occurring about every 3-4 days. Episodes were exertional and would last 3-4 minutes then self-resolve with rest. She never tried SL nitro for these. Allergies Allergy/AdvReac Type Severity Reaction Status Date / Time bee venom protein (honey bee) Allergy Unknown SWELLING Verified 02/04/20 17:20 WITH BEE STING/WASP Iodinated Contrast Media Allergy Unknown HIVES Verified 02/04/20 17:20 Macrolide Antibiotics Allergy Unknown MYCIN Verified 02/04/20 17:20 TOPICAL-RASH morphine Allergy Unknown NAUSEA AND Verified 02/04/20 17:20 VOMITING naproxen Allergy Unknown RED AND Verified 02/04/20 17:20 PRICKLY HANDS neomycin Allergy Unknown MYCIN Verified 02/04/20 17:20 TOPICAL-RASH codeine AdvReac Mild NAUSEA Verified 02/04/20 17:20 Home Medications Medication Instructions Recorded Confirmed Type aspirin 325 mg tablet,delayed 325 mg PO QAM tab 10/10/18 02/04/20 History release cholecalciferol (vitamin D3) 50 2,000 units PO QAM tab 10/13/18 02/04/20 History mcg (2,000 unit) tablet magnesium chloride 64 mg 128 mg PO BID #120 tab 10/13/18 02/04/20 History (magnesium chloride) tablet,delayed release nitroglycerin 0.4 mg sublingual 0.4 mg SL UD PRN #2 tab 10/13/18 02/04/20 History tablet blood sugar diagnostic #100 ea 11/09/18 11/01/19 Rx metronidazole 1 % topical gel 1 appln TOPICAL .COMPLEX PRN #60 gm 11/09/18 02/04/20 Rx insulin syringe-needle U-100 1 mL #200 ea 02/05/19 11/01/19 Rx 31 gauge x 5/16" rosuvastatin 10 mg tablet 10 mg PO Q2D #45 tab 06/19/19 02/04/20 Rx losartan 50 mg tablet 50 mg PO QAM #90 tab 07/10/19 02/04/20 Rx metoprolol succinate 200 mg 200 mg PO QAM #90 tab 07/10/19 02/04/20 Rx tablet,extended release 24 hr metformin 1,000 mg tablet 1,000 mg PO BID #180 tab 01/28/20 02/04/20 Rx insulin NPH and regular human 0 units SQ BID 02/04/20 02/04/20 History [Novolin 70/30 U-100 Insulin] Past Med/Surg History Medical History (Updated 02/05/20 @ 02:27 by Wally Del Valle) CAD (coronary artery disease) 1996 - stents x 2, Left circumflex & RCA Chronic diarrhea DM (diabetes mellitus) Elevated vitamin B12 level HTN (hypertension) Hyperlipidemia Hypomagnesemia Left knee pain Lumbar stenosis with neurogenic claudication Myalgia Osteoarthritis Routine health maintenance Tremor Surgical History History of cataract surgery History of hemilaminectomy History of laparoscopic cholecystectomy History of spinal surgery S/P coronary artery stent placement Status post right partial knee replacement Family History (Updated 02/04/20 @ 18:08 by Wally Del Valle) Mother Cardiac disorder Hypertension Breast cancer S/P CABG (coronary artery bypass graft) Sister Hypertension Inflammatory bowel disease Cancer Father Cancer Family/Other Breast cancer Cousin Myocardial infarction Denies family history of Ovarian cancer Prostate cancer Crohn's disease Colorectal cancer Social History (Updated 02/04/20 @ 18:08 by Wally Del Valle) Smoking Status: Never smoker Hx Alcohol Use: No Hx Substance Use: No Preferred Language: Montenegrin Communication Ability: Effective Technology Intern Required: No Beliefs That Will Affect Care: None marital status: Single marital status details: Current Living Situation: Alone current occupational status: 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 How many Children do You have: 2 How many Children do You have Comment: sons Other Information That Helps Us Care for You: No Feels Safe at Home: Yes Dental Care, Regularly: Yes Physical Activity Frequency: Other Physical Activity Frequency Comment: usual walking Seatbelt Use: always Sunscreen Use: No Assistive Devices: BiPap Review of Systems Constitutional: + fatigue; no fever, no chills and no anorexia Eyes: no worsening vision Ear, Nose, Mouth, Throat: no nasal congestion and no sore throat no loss of taste or smell Respiratory: + dyspnea and + dyspnea on exertion; no cough and no wheezing Cardiovascular: as per Subjective / HPI, + chest pain, + chest pain with activity, + dyspnea at rest, + dyspnea on exertion and + orthopnea; no paroxysmal nocturnal dyspnea and no edema Gastrointestinal: no abdominal pain, no nausea, no vomiting and no diarrhea/loose stools Genitourinary: no dysuria Musculoskeletal: no joint pain Integumentary: no rash Neurologic: no localized weakness Psychiatric: no depression Endocrine: admits to not checking sugars very often Hematologic / Lymphatic: no easy bruising Physical Exam Constitutional: + acute distress (Tachypnea, on BIPAP) and + obese; no altered mental status Eyes: PERRL ENMT: Mouth: no oral mucosal abnormality and oral mucous membranes not dry Neck: trachea midline, no thyromegaly Respiratory: + respiratory distress and + tachypneic Auscultation: + rales; no wheezes Cardiovascular: Rate/Rhythm: regular rhythm and + tachycardic Heart Sounds: normal S1 and normal S2; no murmur Vessels: + JVD, posterior tibial pulses present and dorsalis pedis pulses present Extremities: no edema Gastrointestinal (Abdomen): normal bowel sounds, soft, nontender, no hepatosplenomegaly Musculoskeletal: no cyanosis or clubbing, extremities motor strength 5/5 Skin: no rashes, warm and dry Neurologic: moves all extremities Psychiatric: Orientation: alert and oriented x 3 Lymphatic: no cervical lymphadenopathy Results & Data Results & Data ([facility]) Vital Signs (Past 12 Hours) Vital Signs Temp Pulse Resp BP Pulse Ox 02/04/20 17:06 112 H 22 97 02/04/20 17:00 116 H 28 H 149/91 H 89 L 02/04/20 16:45 115 H 19 148/140 H 88 L 02/04/20 16:30 104 H 22 148/96 H 97 02/04/20 16:25 105 H 20 150/100 H 98 02/04/20 16:15 103 H 20 158/107 H 97 02/04/20 16:09 96 02/04/20 16:00 102 H 21 141/92 H 96 02/04/20 15:45 104 H 21 157/102 H 96 02/04/20 15:31 106 H 21 154/92 H 99 02/04/20 15:20 104 H 24 95 02/04/20 15:15 106 H 23 165/98 H 96 02/04/20 15:09 36.9 C 105 H 32 H 164/88 H 97 02/04/20 15:08 109 H 25 H 164/88 H 97 02/04/20 15:07 110 H 33 H 94 Laboratory Results Laboratory Results - last 24 hr 02/04/20 02/04/20 02/04/20 15:18 15:18 15:18 WBC 12.50 H RBC 5.32 Hgb 16.0 Hct 47.8 H MCV 89.8 MCH 30.1 MCHC 33.5 RDW Std Deviation 48.1 H RDW Coeff of Socrates 14.8 H Plt Count 193 MPV 9.9 Immature Gran % (Auto) 0.5 Neut % (Auto) 66.8 Lymph % (Auto) 26.7 [place] % (Auto) 4.6 Eos % (Auto) 1.2 Baso % (Auto) 0.2 Neut # (Auto) 8.36 H Lymph # (Auto) 3.34 [place] # (Auto) 0.57 Eos # (Auto) 0.15 Baso # (Auto) 0.02 Immature Gran # (Auto) 0.06 H PT 11.1 INR 1.1 APTT 22.6 PTT Ratio 0.8 Sodium 141 Potassium Chloride 107 Carbon Dioxide 21 Anion Gap 13.0 H BUN 17 Creatinine 1.46 H Est Cr Clr Drug Dosing Not Reportable Est GFR ( Amer) 39.5 Est GFR (Non-Af Amer) 34.1 BUN/Creatinine Ratio 11.4 Glucose 257 H POC Glucose Calcium 9.6 Magnesium Total Bilirubin 0.8 AST ALT 36 Alkaline Phosphatase 100 Troponin I 0.603 H* NT-Pro-B Natriuret Pep 104 Total Protein 7.8 Albumin 3.1 L Globulin 4.7 H Albumin/Globulin Ratio 0.7 L Urine Color Urine Appearance Urine pH Ur Specific [place] Urine Protein Urine Glucose (UA) Urine Ketones Urine Blood Urine Nitrite Urine Bilirubin Urine Urobilinogen Ur Leukocyte Esterase Urine WBC (Auto) Urine RBC (Auto) U Hyaline Cast (Auto) U Epithel Cells (Auto) Urine Bacteria (Auto) Ur Renal Epithelial Cell COVID-19 Eval Order COVID-19 PCR Influenza Type A (PCR) Influenza Type B (PCR) RSV (RT-PCR) 02/04/20 02/04/20 02/04/20 15:30 15:30 16:22 WBC RBC Hgb Hct MCV MCH MCHC RDW Std Deviation RDW Coeff of Socrates Plt Count MPV Immature Gran % (Auto) Neut % (Auto) Lymph % (Auto) [place] % (Auto) Eos % (Auto) Baso % (Auto) Neut # (Auto) Lymph # (Auto) [place] # (Auto) Eos # (Auto) Baso # (Auto) Immature Gran # (Auto) PT INR APTT PTT Ratio Sodium Potassium 5.3 H Chloride Carbon Dioxide Anion Gap BUN Creatinine Est Cr Clr Drug Dosing Est GFR ( Amer) Est GFR (Non-Af Amer) BUN/Creatinine Ratio Glucose POC Glucose Calcium Magnesium Total Bilirubin AST 61 H ALT Alkaline Phosphatase Troponin I NT-Pro-B Natriuret Pep Total Protein Albumin Globulin Albumin/Globulin Ratio Urine Color Urine Appearance Urine pH Ur Specific Clar[place] Urine Protein Urine Glucose (UA) Urine Ketones Urine Blood Urine Nitrite Urine Bilirubin Urine Urobilinogen Ur Leukocyte Esterase Urine WBC (Auto) Urine RBC (Auto) U Hyaline Cast (Auto) U Epithel Cells (Auto) Urine Bacteria (Auto) Ur Renal Epithelial Cell COVID-19 Eval Order CovFluRsv at [facility] COVID-19 PCR NEGATIVE Influenza Type A (PCR) Negative Influenza Type B (PCR) Negative RSV (RT-PCR) Negative 02/04/20 02/04/20 02/04/20 16:22 17:05 19:57 WBC RBC Hgb Hct MCV MCH MCHC RDW Std Deviation RDW Coeff of Socrates Plt Count MPV Immature Gran % (Auto) Neut % (Auto) Lymph % (Auto) [place] % (Auto) Eos % (Auto) Baso % (Auto) Neut # (Auto) Lymph # (Auto) [place] # (Auto) Eos # (Auto) Baso # (Auto) Immature Gran # (Auto) PT INR APTT PTT Ratio Sodium Potassium Chloride Carbon Dioxide Anion Gap BUN Creatinine Est Cr Clr Drug Dosing Est GFR ( Amer) Est GFR (Non-Af Amer) BUN/Creatinine Ratio Glucose POC Glucose 198 H Calcium Magnesium 1.5 L Total Bilirubin AST ALT Alkaline Phosphatase Troponin I NT-Pro-B Natriuret Pep Total Protein Albumin Globulin Albumin/Globulin Ratio Urine Color Yellow Urine Appearance Cloudy A Urine pH 5.0 Ur Specific [place] 1.020 Urine Protein 3+ H Urine Glucose (UA) Trace H Urine Ketones Trace H Urine Blood 1+ H Urine Nitrite Negative Urine Bilirubin Negative Urine Urobilinogen Negative Ur Leukocyte Esterase Negative Urine WBC (Auto) 1-5 Urine RBC (Auto) 0-4 U Hyaline Cast (Auto) 10-30 H U Epithel Cells (Auto) >30 H Urine Bacteria (Auto) 1+ H Ur Renal Epithelial Cell Not Reportable COVID-19 Eval Order COVID-19 PCR Influenza Type A (PCR) Influenza Type B (PCR) RSV (RT-PCR) 02/04/20 02/04/20 02/04/20 21:08 22:58 23:57 WBC RBC Hgb Hct MCV MCH MCHC RDW Std Deviation RDW Coeff of Socrates Plt Count MPV Immature Gran % (Auto) Neut % (Auto) Lymph % (Auto) [place] % (Auto) Eos % (Auto) Baso % (Auto) Neut # (Auto) Lymph # (Auto) [place] # (Auto) Eos # (Auto) Baso # (Auto) Immature Gran # (Auto) PT INR APTT 41.3 H PTT Ratio 1.5 Sodium Potassium Chloride Carbon Dioxide Anion Gap BUN Creatinine Est Cr Clr Drug Dosing Est GFR ( Amer) Est GFR (Non-Af Amer) BUN/Creatinine Ratio Glucose POC Glucose 169 H Calcium Magnesium Total Bilirubin AST ALT Alkaline Phosphatase Troponin I 24.600 H* NT-Pro-B Natriuret Pep Total Protein Albumin Globulin Albumin/Globulin Ratio Urine Color Urine Appearance Urine pH Ur Specific [place] Urine Protein Urine Glucose (UA) Urine Ketones Urine Blood Urine Nitrite Urine Bilirubin Urine Urobilinogen Ur Leukocyte Esterase Urine WBC (Auto) Urine RBC (Auto) U Hyaline Cast (Auto) U Epithel Cells (Auto) Urine Bacteria (Auto) Ur Renal Epithelial Cell COVID-19 Eval Order COVID-19 PCR Influenza Type A (PCR) Influenza Type B (PCR) RSV (RT-PCR) Diagnostic Findings 1. cxr: IMPRESSION: 1. Cardiomegaly with prominence of the pulmonary vasculature. Correlate c linically for evidence of congestive failure. 2. Hazy airspace opacities are seen throughout both lungs. Differential considerations include pulmonary edema and/or an infectious/inflammatory pneumonitis. Clinical correlation will be required. 2. EKG - NSR, diffuse anterior ST segment depressions - worse in comparison to prior EKG Code Status & VTE Plan Code Status full VTE Prophylaxis Plan VTE Prophylaxis will be ordered: Yes PG Care Time/CCT Total # of Minutes Spent Total Time Spent with Patient: Total time spent is greater than 50% in coordination of care (as documented) at patient's floor/unit and/or counseling patient: Coding Level of Care Code 19746 Initial Inpt Care Lvl 3 Diagnoses Acute respiratory failure with hypoxia J96.01 NSTEMI (non-ST elevated myocardial infarction) I21.4 Acute CHF I50.9 CAD (coronary artery disease) I25.10 DM (diabetes mellitus) E11.9 Hyperlipidemia E78.5 Hypomagnesemia E83.42 Hyperkalemia E87.5 Acute kidney injury N17.9 DVT prophylaxis Z29.9
[2020-02-04 17:37] LABS: Bacteria Urine Automated 1+ (Negative)
[2020-02-04] MEDS: MAGNESIUM SULFATE / D5W 1 GM/100 ML BAG IV SCH ×2 (18:37→20:09)
[2020-02-04] MEDS ORDERED: ONDANSETRON INJ 2 MG/ML 2 ML VIAL IV PRN (19:23)
[2020-02-04] MEDS ORDERED: NITROGLYCERIN SL 0.4 MG/TAB TAB SL PRN (19:23)
[2020-02-04] MEDS ORDERED: MoRPHine SULFATE 2 MG/ML CARP IV PRN (19:23)
[2020-02-04] MEDS ORDERED: ACETAMINOPHEN 325 MG TAB PO PRN (19:23)
[2020-02-04] MEDS ORDERED: PHARMACY GLYCEMIC MGMT CONSULT PRN (19:42)
[2020-02-04] MEDS ORDERED: cefTRIAXone SODIUM 2,000 MG/70 ML BAG IV ONE (20:00)
[2020-02-04] MEDS ORDERED: cefTRIAXone SODIUM 2,000 MG in DEXTROSE 5% 50 ML IV ONE (20:00)
[2020-02-04] MEDS ORDERED: GLUCAGON FOR INJ 1 MG VIAL IM PRN (20:15)
[2020-02-04] MEDS ORDERED: CARBOHYDRATES FOR HYPOGLYCEMIA PO PRN (20:15)
[2020-02-04] MEDS ORDERED: GLUCOSE 10 TABS/TUBE PO PRN (20:15)
[2020-02-04] MEDS ORDERED: DEXTROSE 50% 50 ML SYRINGE IV PRN (20:15)
[2020-02-04] MEDS ORDERED: GLUCOSE 40% GEL 15 GM TUBE PO PRN (20:15)
[2020-02-04] MEDS: MAGNESIUM CHLORIDE 64MG DELAYED REL TAB PO SCH (20:16)
[2020-02-04] MEDS ORDERED: INSULIN HUMAN NPH SC ONE (20:30)
[2020-02-04] MEDS: INSULIN ASPART 100 UNITS/ML 3 ML PEN SC SCH (21:00)
[2020-02-04 23:30] LABS: Partial Thromboplastin Ratio 1.5; Partial Thromboplastin Time 41.3 Seconds (21.0-31.0)
[2020-02-05] MEDS: NITROGLYCERIN 2% OINTMENT 30GM TUBE EXT SCH ×3 (00:01→12:07)
[2020-02-05] MEDS: INSULIN ASPART 100 UNITS/ML 3 ML PEN SC SCH ×3 (00:03→12:07)
[2020-02-05 03:40] LABS: BUN Creatinine Ratio 17.2 (10-20); Calcium 9.3 mg/dl (8.5-10.1); Creatinine Clr Calc Pharmacy 33.3 ml/min; Est GFR (African American) 42.7; Est GFR (Non-African American) 36.9; Potassium 4.1 mmol/L (3.5-5.1)
[2020-02-05 06:15] LABS: Estimated Average Glucose 151 mg/dl; Hemoglobin A1C 6.9 % (4.5-5.6)
[2020-02-05 06:49] LABS: Partial Thromboplastin Ratio 1.6; Partial Thromboplastin Time 44.4 Seconds (21.0-31.0)
[2020-02-05] MEDS ORDERED: INSULIN HUMAN NPH SC ONE (07:30)
[2020-02-05] MEDS: MAGNESIUM CHLORIDE 64MG DELAYED REL TAB PO SCH (08:13)
[2020-02-05] MEDS ORDERED: CHOLECALCIFEROL 1,000 UNITS 25 MCG TAB PO SCH (09:00)
[2020-02-05] MEDS ORDERED: ASPIRIN 325 MG ECTAB PO SCH (09:00)
[2020-02-05] MEDS ORDERED: METOPROLOL SUCC 50MG EXT REL TAB PO SCH ×2 (09:00)
[2020-02-05] MEDS ORDERED: ROSUVASTATIN CALCIUM 20 MG TAB PO SCH (09:00)
--- NOTE | 2020-02-05 09:00 | Hospitalist Progress Note ---
Date of Service February 05, 2020 Assessment & Plan (1) Acute respiratory failure with hypoxia: 2nd to flash pulmonary edema/acute CHF in setting of NSTEMI. Continue BIPAP. Diurese. Wean O2 as tolerated. Of note - COVID-19, flu, and RSV negative. Doubt infectious cause of hypoxia. (2) NSTEMI (non-ST elevated myocardial infarction): Symptoms, EKG findings, and elevated troponin all consistent with NSTEMI. Place on heparin infusion. Topical nitrates. Continue beta vj. Change statin from 10mg qod to 20mg daily. Check lipids/hemoglobin a1c in am. Telemetry. Echocardiogram. Continue aspirin. [facility] Cardiology to see in am. Will need cardiac catheterization this admission to evaluate coronaries. Resume ARB if BPs will allow. (3) Acute CHF: 2nd to flash pulmonary edema in setting of NSTEMI. Lasix IV given in ER. Follow UOP response. Likely to need additional lasix in am. Echo. Continue beta vj. Resume ARB if BPs will allow. Continue topical nitrates. (4) CAD (coronary artery disease): Known CAD with prior stent placement in the late at [facility]. No heart cath since that time. See "NSTEMI" above. (5) DM (diabetes mellitus): Will consult pharmacy for glycemic management/assistance. Check hemoglobin a1c in am. Check BSGs q6h while NPO. (6) Hyperlipidemia: Check lipids am. Change crestor from qod dosing to daily and increase to 20mg. (7) Hypomagnesemia: chronic. 2nd to diarrhea? renal wasting? other? mag sulfate IV now. repeat mag level am. (8) Hyperkalemia: 2nd to ABHIJEET in setting of acute CHF/NSTEMI. Lasix. repeat BMP am. (9) Acute kidney injury: 2nd to prerenal physiology -- acute CHF/NSTEMI leading to hypoperfusion. Should improve with Rx of NSTEMI and diuresis. BMP am. (10) DVT prophylaxis: heparin infusion. son updated by phone. Admission and Anticipated Discharge Date Admission Date: February 04, 2020 Results & Data Results & Data ([facility]) Vital Signs (Past 12 Hours) Vital Signs Temp Pulse Pulse Resp BP Pulse Ox 02/05/20 08:18 36.8 C 89 18 140/60 92 02/05/20 03:04 36.5 C 92 H 21 143/80 H 90 02/05/20 02:12 94 02/05/20 00:20 100 H 14 93 02/04/20 23:52 36.9 C 94 H 19 122/74 88 L PG Care Time/CCT Total # of Minutes Spent Total Time Spent with Patient: Total time spent is greater than 50% in coordination of care (as documented) at patient's floor/unit and/or counseling patient: Coding Diagnoses Acute respiratory failure with hypoxia J96.01 NSTEMI (non-ST elevated myocardial infarction) I21.4 Acute CHF I50.9 CAD (coronary artery disease) I25.10 DM (diabetes mellitus) E11.9 Hyperlipidemia E78.5 Hypomagnesemia E83.42 Hyperkalemia E87.5 Acute kidney injury N17.9 DVT prophylaxis Z29.9
--- NOTE | 2020-02-05 09:20 | Cardiology Consultation ---
Date of Consultation February 05, 2020 Assessment & Plan (1) NSTEMI (non-ST elevated myocardial infarction): Mrs. Espino is a 79 year old female with a history of Hypertension, Dyslipidemia, Type 2 Diabetes Mellitus, Chronic Hypomagnesemia, Osteoarthritis, Lumbar Spinal Stenosis, and CAD s/p RCA Stent and LCx Stent -- who was admitted with an NSTEMI. Patient developed the acute onset of Profound Shortness of Breath and a "Squeezing" sensation in her Chest yesterday afternoon. She did not have any radiation of that squeezing sensation and she denies any associated nausea, vomiting, or diaphoresis. The shortness of breath was profound and she could hear gurgling in her chest while breathing and she could not get "enough air" in her lungs. She felt like she was going to . She did not try to climb upstairs to get her NTG. She called 911. EMS arrived on the scene about 30 minutes later and patient was still quite symptomatic. The patient was given NTG x 3 and placed on CPAP by the EMS crew -- which helped significantly. Patient was hypertensive with a systolic blood pressure of 190 mmHg prior to SL NTG . After 3 nitroglycerin her systolic blood pressure dropped down to 164 mmHg. -- EKG showed marked Inferolateral ST segment depressions with T wave abnor malities. -- Initial Troponin I was elevated at 0.603 ng/ml, with subsequent values of 26.60 and 27.10 ng/ml. -- CXR on admission showed cardiomegaly and pulmonary edema. -- Echocardiogram 02/05/2020 shows LVEF of 55% to 60% with hypokinesis of the apical inferior wall. Recommend the following: -- Cardiac catheterization / coronary angiography. -- Pretreat for contrast allergy. -- Increase Metoprolol Succinate to 200 mg daily. -- Increase Rosuvastatin to 20 mg daily if patient tolerates. -- Continue Aspirin daily. -- Continue Losartan 50 mg daily. -- Further recommendations following cardiac catheterization. (2) CAD (coronary artery disease): -- History of Mid RCA Stent October 1996 for unstable angina. -- History of Proximal and Mid LCx Multi-link stents x 2. -- Beta vj, ARB, Aspirin, statin as outlined above. (3) Flash pulmonary edema: -- Resolved, likely secondary to her NSTEMI. (4) HTN (hypertension): -- Continue medications as outlined above. -- This morning's BP was 140/60. History of Present Illness Reason for Consultation: -- NSTEMI. -- CAD. -- Flash Pulmonary Edema. Requesting Physician: Sheila Fried MD Attending Physician: Keyur Darby MD History of Present Illness Mrs. Espino is a 79 year old female with a history of Hypertension, Dyslipidemia, Type 2 Diabetes Mellitus, Chronic Hypomagnesemia, Osteoarthritis, Lumbar Spinal Stenosis, and CAD s/p RCA Stent and LCx Stent -- who was admitted with an NSTEMI. Patient was in her usual state of health yesterday afternoon and [place] when she developed the acute onset of Profound Shortness of Breath and a "Squeezing" sensation in her Chest. She did not have any radiation of that squeezing sensation and she denies any associated nausea, vomiting, or diaphoresis. The shortness of breath was profound and she could hear gurgling in her chest while breathing and she could not get "enough air" in her lungs. She felt like she was going to . She did not try to climb upstairs to get her NTG. She called 911. EMS arrived on the scene about 30 minutes later and patient was still quite symptomatic. The patient was given NTG x 3 and placed on CPAP by the EMS crew -- which helped significantly. Patient was hypertensive with a systolic blood pressure of 190 mmHg prior to SL NTG . After 3 nitroglycerin her systolic blood pressure dropped down to 164 mmHg. EKG showed marked Inferolateral ST segment depressions with T wave abnormalities. Initial Troponin I was elevated at 0.603 ng/ml, with subsequent values of 26.60 and 27.10 ng/ml. CXR on admission showed cardiomegaly and p ulmonary edema. Echocardiogram was done earlier today. At the present time, patient feels that her breathing has returned to baseline. She slept or rested with the head of her slightly elevated overnight. She denies any further chest pressure, fullness, pain, or that "squeezing sensation" since arriving in the ER. Patient does admit exertional chest discomfort over the past 3 to 4 month when she did "more strenuous" activities, and it would consistently resolve within 3 minutes of resting. She denies any exertional neck, jaw, back, or arm pain. She denies any SOB currently. No orthopnea or PND. No palpitations, syncope, or near syncope. HISTORICAL BACKGROUND: Her cardiac history dates back to October 1996 when she developed unstable angina pectoris. She was noted to have a high-grade Mid RCA lesion which was treated with PTCA and deployment of a stent. She was noted to have borderline occlusive disease of the left circumflex coronary artery, 50% mid LAD stenosis, and a normal left main coronary artery at that time. She developed recurrent angina pectoris in January 1997 which prompted repeat cardiac catheterization. She underwent deployment of 2 Multi-Link stents in the Proximal and Mid LCx without complications. Allergies Allergy/AdvReac Type Severity Reaction Status Date / Time bee venom protein (honey bee) Allergy Unknown SWELLING Verified 02/04/20 17:20 WITH BEE STING/WASP Iodinated Contrast Media Allergy Unknown HIVES Verified 02/04/20 17:20 Macrolide Antibiotics Allergy Unknown MYCIN Verified 02/04/20 17:20 TOPICAL-RASH morphine Allergy Unknown NAUSEA AND Verified 02/04/20 17:20 VOMITING naproxen Allergy Unknown RED AND Verified 02/04/20 17:20 PRICKLY HANDS neomycin Allergy Unknown MYCIN Verified 02/04/20 17:20 TOPICAL-RASH codeine AdvReac Mild NAUSEA Verified 02/04/20 17:20 Home Medications Medication Instructions Recorded Confirmed Type aspirin 325 mg tablet,delayed 325 mg PO QAM tab 10/10/18 02/04/20 History release cholecalciferol (vitamin D3) 50 2,000 units PO QAM tab 10/13/18 02/04/20 History mcg (2,000 unit) tablet magnesium chloride 64 mg 128 mg PO BID #120 tab 10/13/18 02/04/20 History (magnesium chloride) tablet,delayed release nitroglycerin 0.4 mg sublingual 0.4 mg SL UD PRN #2 tab 10/13/18 02/04/20 History tablet blood sugar diagnostic #100 ea 11/09/18 11/01/19 Rx metronidazole 1 % topical gel 1 appln TOPICAL .COMPLEX PRN #60 gm 11/09/18 02/04/20 Rx insulin syringe-needle U-100 1 mL #200 ea 02/05/19 11/01/19 Rx 31 gauge x 5/16" rosuvastatin 10 mg tablet 10 mg PO Q2D #45 tab 06/19/19 02/04/20 Rx losartan 50 mg tablet 50 mg PO QAM #90 tab 07/10/19 02/04/20 Rx metoprolol succinate 200 mg 200 mg PO QAM #90 tab 07/10/19 02/04/20 Rx tablet,extended release 24 hr metformin 1,000 mg tablet 1,000 mg PO BID #180 tab 01/28/20 02/04/20 Rx insulin NPH and regular human 0 units SQ BID 02/04/20 02/04/20 History [Novolin 70/30 U-100 Insulin] Patient History Medical History (Updated 02/05/20 @ 09:43 by Ryan Berry PA-C) CAD (coronary artery disease) 1996 - stents x 2, Left circumflex & RCA Chronic diarrhea DM (diabetes mellitus) Elevated vitamin B12 level HTN (hypertension) Hyperlipidemia Hypomagnesemia Left knee pain Lumbar stenosis with neurogenic claudication Myalgia Osteoarthritis Routine health maintenance Tremor Surgical History History of cataract surgery History of hemilaminectomy History of laparoscopic cholecystectomy History of spinal surgery S/P coronary artery stent placement Status post right partial knee replacement Family History (Updated 02/04/20 @ 18:08 by Wally Del Valle) Mother Cardiac disorder Hypertension Breast cancer S/P CABG (coronary artery bypass graft) Sister Hypertension Inflammatory bowel disease Cancer Father Cancer Family/Other Breast cancer Cousin Myocardial infarction Denies family history of Ovarian cancer Prostate cancer Crohn's disease Colorectal cancer Social History (Updated 02/04/20 @ 18:08 by Wally Del Valle) Smoking Status: Never smoker Hx Alcohol Use: No Hx Substance Use: No Preferred Language: [place]de[place] Communication Ability: Effective Patient Relations Liaison Required: No Beliefs That Will Affect Care: None marital status: Single marital status details: Current Living Situation: Alone current occupational status: 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 HEENT: Head is atraumatic, normocephalic. EOM's intact. Facies symmetric. No perioral cyanosis. NECK: No JVD. JVP is not elevated. Carotid upstrokes are + 2 bilaterally. No bruits are noted. CHEST/LUNGS: Clear to auscultation throughout all lung honeycutt. No wheezes, rales, or crackles. CVS: S1 and S2 are regular at 88 bpm. No obvious murmurs, gallops, or rubs. PMI is nonpalpable. No lifts, heaves, or thrills. No abdominal aortic or renal bruits. ABDOMINAL EXAM: Bowel sounds are present. No masses, organomegaly, or tenderness. EXTREMITIES: No clubbing or cyanosis. No edema. Intact radial pulses bilaterally. Bulmaro's test is positive for right radial and ulnar reflow. NEUROLOGIC EXAM: Patient is awake, alert, and oriented. Pleasant and cooperative. Answers questions appropriately. Speech is clear. TELEMETRY: -- Normal sinus rhythm in 80's to 90's with occasional PVC's. Results & Data ([facility]) Vital Signs (Past 12 Hours) Vital Signs Temp Pulse Pulse Resp BP Pulse Ox 02/05/20 08:18 36.8 C 89 18 140/60 92 02/05/20 03:04 36.5 C 92 H 21 143/80 H 90 02/05/20 02:12 94 02/05/20 00:20 100 H 14 93 02/04/20 23:52 36.9 C 94 H 19 122/74 88 L Laboratory Results Laboratory Results - last 24 hr 02/04/20 02/04/20 02/04/20 15:18 15:18 15:18 WBC 12.50 H RBC 5.32 Hgb 16.0 Hct 47.8 H MCV 89.8 MCH 30.1 MCHC 33.5 RDW Std Deviation 48.1 H RDW Coeff of Socrates 14.8 H Plt Count 193 MPV 9.9 Immature Gran % (Auto) 0.5 Neut % (Auto) 66.8 Lymph % (Auto) 26.7 [place] % (Auto) 4.6 Eos % (Auto) 1.2 Baso % (Auto) 0.2 Neut # (Auto) 8.36 H Lymph # (Auto) 3.34 [place] # (Auto) 0.57 Eos # (Auto) 0.15 Baso # (Auto) 0.02 Immature Gran # (Auto) 0.06 H PT 11.1 INR 1.1 APTT 22.6 PTT Ratio 0.8 Sodium 141 Potassium Chloride 107 Carbon Dioxide 21 Anion Gap 13.0 H BUN 17 Creatinine 1.46 H Est Cr Clr Drug Dosing Not Reportable Est GFR ( Amer) 39.5 Est GFR (Non-Af Amer) 34.1 BUN/Creatinine Ratio 11.4 Glucose 257 H POC Glucose Estimat Average Glucose Hemoglobin A1c Calcium 9.6 Magnesium Total Bilirubin 0.8 AST ALT 36 Alkaline Phosphatase 100 Troponin I 0.603 H* NT-Pro-B Natriuret Pep 104 Total Protein 7.8 Albumin 3.1 L Globulin 4.7 H Albumin/Globulin Ratio 0.7 L Triglycerides Cholesterol LDL Cholesterol, Calc VLDL Cholesterol, Calc HDL Cholesterol Cholesterol/HDL Ratio Urine Color Urine Appearance Urine pH Ur Specific [place] Urine Protein Urine Glucose (UA) Urine Ketones Urine Blood Urine Nitrite Urine Bilirubin Urine Urobilinogen Ur Leukocyte Esterase Urine WBC (Auto) Urine RBC (Auto) U Hyaline Cast (Auto) U Epithel Cells (Auto) Urine Bacteria (Auto) Ur Renal Epithelial Cell COVID-19 Eval Order COVID-19 PCR Influenza Type A (PCR) Influenza Type B (PCR) RSV (RT-PCR) 02/04/20 02/04/20 02/04/20 15:30 15:30 16:22 WBC RBC Hgb Hct MCV MCH MCHC RDW Std Deviation RDW Coeff of Socrates Plt Count MPV Immature Gran % (Auto) Neut % (Auto) Lymph % (Auto) [place] % (Auto) Eos % (Auto) Baso % (Auto) Neut # (Auto) Lymph # (Auto) [place] # (Auto) Eos # (Auto) Baso # (Auto) Immature Gran # (Auto) PT INR APTT PTT Ratio Sodium Potassium 5.3 H Chloride Carbon Dioxide Anion Gap BUN Creatinine Est Cr Clr Drug Dosing Est GFR ( Amer) Est GFR (Non-Af Amer) BUN/Creatinine Ratio Glucose POC Glucose Estimat Average Glucose Hemoglobin A1c Calcium Magnesium Total Bilirubin AST 61 H ALT Alkaline Phosphatase Troponin I NT-Pro-B Natriuret Pep Total Protein Albumin Globulin Albumin/Globulin Ratio Triglycerides Cholesterol LDL Cholesterol, Calc VLDL Cholesterol, Calc HDL Cholesterol Cholesterol/HDL Ratio Urine Color Urine Appearance Urine pH Ur Specific [place] Urine Protein Urine Glucose (UA) Urine Ketones Urine Blood Urine Nitrite Urine Bilirubin Urine Urobilinogen Ur Leukocyte Esterase Urine WBC (Auto) Urine RBC (Auto) U Hyaline Cast (Auto) U Epithel Cells (Auto) Urine Bacteria (Auto) Ur Renal Epithelial Cell COVID-19 Eval Order CovFluRsv at [facility] COVID-19 PCR NEGATIVE Influenza Type A (PCR) Negative Influenza Type B (PCR) Negative RSV (RT-PCR) Negative 02/04/20 02/04/20 02/04/20 16:22 17:05 19:57 WBC RBC Hgb Hct MCV MCH MCHC RDW Std Deviation RDW Coeff of Socrates Plt Count MPV Immature Gran % (Auto) Neut % (Auto) Lymph % (Auto) [place] % (Auto) Eos % (Auto) Baso % (Auto) Neut # (Auto) Lymph # (Auto) [place] # (Auto) Eos # (Auto) Baso # (Auto) Immature Gran # (Auto) PT INR APTT PTT Ratio Sodium Potassium Chloride Carbon Dioxide Anion Gap BUN Creatinine Est Cr Clr Drug Dosing Est GFR ( Amer) Est GFR (Non-Af Amer) BUN/Creatinine Ratio Glucose POC Glucose 198 H Estimat Average Glucose Hemoglobin A1c Calcium Magnesium 1.5 L Total Bilirubin AST ALT Alkaline Phosphatase Troponin I NT-Pro-B Natriuret Pep Total Protein Albumin Globulin Albumin/Globulin Ratio Triglycerides Cholesterol LDL Cholesterol, Calc VLDL Cholesterol, Calc HDL Cholesterol Cholesterol/HDL Ratio Urine Color Yellow Urine Appearance Cloudy A Urine pH 5.0 Ur Specific [place] 1.020 Urine Protein 3+ H Urine Glucose (UA) Trace H Urine Ketones Trace H Urine Blood 1+ H Urine Nitrite Negative Urine Bilirubin Negative Urine Urobilinogen Negative Ur Leukocyte Esterase Negative Urine WBC (Auto) 1-5 Urine RBC (Auto) 0-4 U Hyaline Cast (Auto) 10-30 H U Epithel Cells (Auto) >30 H Urine Bacteria (Auto) 1+ H Ur Renal Epithelial Cell Not Reportable COVID-19 Eval Order COVID-19 PCR Influenza Type A (PCR) Influenza Type B (PCR) RSV (RT-PCR) 02/04/20 02/04/20 02/04/20 21:08 22:58 23:57 WBC RBC Hgb Hct MCV MCH MCHC RDW Std Deviation RDW Coeff of Socrates Plt Count MPV Immature Gran % (Auto) Neut % (Auto) Lymph % (Auto) [place] % (Auto) Eos % (Auto) Baso % (Auto) Neut # (Auto) Lymph # (Auto) [place] # (Auto) Eos # (Auto) Baso # (Auto) Immature Gran # (Auto) PT INR APTT 41.3 H PTT Ratio 1.5 Sodium Potassium Chloride Carbon Dioxide Anion Gap BUN Creatinine Est Cr Clr Drug Dosing Est GFR ( Amer) Est GFR (Non-Af Amer) BUN/Creatinine Ratio Glucose POC Glucose 169 H Estimat Average Glucose Hemoglobin A1c Calcium Magnesium Total Bilirubin AST ALT Alkaline Phosphatase Troponin I 24.600 H* NT-Pro-B Natriuret Pep Total Protein Albumin Globulin Albumin/Globulin Ratio Triglycerides Cholesterol LDL Cholesterol, Calc VLDL Cholesterol, Calc HDL Cholesterol Cholesterol/HDL Ratio Urine Color Urine Appearance Urine pH Ur Specific [place] Urine Protein Urine Glucose (UA) Urine Ketones Urine Blood Urine Nitrite Urine Bilirubin Urine Urobilinogen Ur Leukocyte Esterase Urine WBC (Auto) Urine RBC (Auto) U Hyaline Cast (Auto) U Epithel Cells (Auto) Urine Bacteria (Auto) Ur Renal Epithelial Cell COVID-19 Eval Order COVID-19 PCR Influenza Type A (PCR) Influenza Type B (PCR) RSV (RT-PCR) 02/05/20 02/05/20 02/05/20 02:59 02:59 02:59 WBC RBC Hgb Hct MCV MCH MCHC RDW Std Deviation RDW Coeff of Socrates Plt Count MPV Immature Gran % (Auto) Neut % (Auto) Lymph % (Auto) [place] % (Auto) Eos % (Auto) Baso % (Auto) Neut # (Auto) Lymph # (Auto) [place] # (Auto) Eos # (Auto) Baso # (Auto) Immature Gran # (Auto) PT INR APTT PTT Ratio Sodium 141 Potassium 4.1 D Chloride 107 Carbon Dioxide 26 Anion Gap 8.0 BUN 24 H Creatinine 1.37 H Est Cr Clr Drug Dosing 33.3 Est GFR ( Amer) 42.7 Est GFR (Non-Af Amer) 36.9 BUN/Creatinine Ratio 17.2 Glucose 159 H POC Glucose Estimat Average Glucose 151 Hemoglobin A1c 6.9 H Calcium 9.3 Magnesium 2.0 Total Bilirubin AST ALT Alkaline Phosphatase Troponin I 27.100 H* NT-Pro-B Natriuret Pep Total Protein Albumin Globulin Albumin/Globulin Ratio Triglycerides 150 Cholesterol 109 LDL Cholesterol, Calc 28 VLDL Cholesterol, Calc 30 HDL Cholesterol 51 Cholesterol/HDL Ratio 2 Urine Color Urine Appearance Urine pH Ur Specific [place] Urine Protein Urine Glucose (UA) Urine Ketones Urine Blood Urine Nitrite Urine Bilirubin Urine Urobilinogen Ur Leukocyte Esterase Urine WBC (Auto) Urine RBC (Auto) U Hyaline Cast (Auto) U Epithel Cells (Auto) Urine Bacteria (Auto) Ur Renal Epithelial Cell COVID-19 Eval Order COVID-19 PCR Influenza Type A (PCR) Influenza Type B (PCR) RSV (RT-PCR) 02/05/20 02/05/20 05:55 06:04 WBC RBC Hgb Hct MCV MCH MCHC RDW Std Deviation RDW Coeff of Socrates Plt Count MPV Immature Gran % (Auto) Neut % (Auto) Lymph % (Auto) [place] % (Auto) Eos % (Auto) Baso % (Auto) Neut # (Auto) Lymph # (Auto) [place] # (Auto) Eos # (Auto) Baso # (Auto) Immature Gran # (Auto) PT INR APTT 44.4 H PTT Ratio 1.6 Sodium Potassium Chloride Carbon Dioxide Anion Gap BUN Creatinine Est Cr Clr Drug Dosing Est GFR ( Amer) Est GFR (Non-Af Amer) BUN/Creatinine Ratio Glucose POC Glucose 140 H Estimat Average Glucose Hemoglobin A1c Calcium Magnesium Total Bilirubin AST ALT Alkaline Phosphatase Troponin I NT-Pro-B Natriuret Pep Total Protein Albumin Globulin Albumin/Globulin Ratio Triglycerides Cholesterol LDL Cholesterol, Calc VLDL Cholesterol, Calc HDL Cholesterol Cholesterol/HDL Ratio Urine Color Urine Appearance Urine pH Ur Specific [place] Urine Protein Urine Glucose (UA) Urine Ketones Urine Blood Urine Nitrite Urine Bilirubin Urine Urobilinogen Ur Leukocyte Esterase Urine WBC (Auto) Urine RBC (Auto) U Hyaline Cast (Auto) U Epithel Cells (Auto) Urine Bacteria (Auto) Ur Renal Epithelial Cell COVID-19 Eval Order COVID-19 PCR Influenza Type A (PCR) Influenza Type B (PCR) RSV (RT-PCR) Medications Administered Active Medications Generic Name Dose Route Start Last Admin Trade Name Freq PRN Reason Stop Dose Admin Acetaminophen 650 mg 02/04/20 19:23 Acetaminophen 325 Mg Tab PO 03/05/20 19:22 Q4H PRN Pain or Fever Aspirin 325 mg 02/05/20 09:00 02/05/20 08:13 Aspirin 325 Mg Ectab PO 03/06/20 08:59 325 mg QAM BRENDON Administration Dextrose 25 - 50 ml 02/04/20 20:15 Dextrose 50% 50 Ml Syringe IV 03/05/20 20:14 UD PRN Hypoglycemia Protocol Protocol Glucagon 1 mg 02/04/20 20:15 Glucagon For Inj 1 Mg Vial IM 03/05/20 20:14 UD PRN Hypoglycemia Protocol Protocol Glucose 15 - 30 gm 02/04/20 20:15 Glucose 40% Gel 15 Gm Tube PO 03/05/20 20:14 UD PRN Hypoglycemia Protocol Protocol Glucose 4 - 8 tabs 02/04/20 20:15 Glucose 10 Tabs/Tube PO 03/05/20 20:14 UD PRN Hypoglycemia Protocol Protocol Heparin Sodium/Dextrose 25,000 units in 500 mls @ 17 mls/hr 02/04/20 16:30 02/05/20 07:28 Heparin Sodium/Dextrose IV 03/05/20 16:29 900 units/hr .Q24H BRENDON 18 mls/hr Titration Protocol 850 UNITS/HR Insulin Aspart 0 units 02/04/20 20:30 02/05/20 06:08 Insulin Aspart 100 Units/Ml 3 Ml Pen SC 03/05/20 20:29 Not Given Q6 BRENDON Magnesium Chloride 128 mg 02/04/20 21:00 02/05/20 08:13 Magnesium Chloride 64mg Delayed Rel Tab PO 03/05/20 20:59 128 mg BID BRENDON Administration Metoprolol Succinate 100 mg 02/05/20 09:00 02/05/20 08:13 Metoprolol Succ 50mg Ext Rel Tab PO 03/06/20 08:59 100 mg QAM BRENDON Administration Miscellaneous 15 - 30 gm 02/04/20 20:15 Carbohydrates For Hypoglycemia PO 03/05/20 20:14 UD PRN Hypoglycemia Treatment Miscellaneous Information 1 ea 02/04/20 19:42 Pharmacy Glycemic Mgmt Consult N/A 03/05/20 19:41 UD PRN Consult Morphine Sulfate 2 mg 02/04/20 19:23 Morphine Sulfate 2 Mg/Ml Carp IV 02/18/20 19:22 Q30M PRN Chest Pain Nitroglycerin 0.4 mg 02/04/20 19:23 Nitroglycerin Sl 0.4 Mg/Tab Tab SL 03/05/20 19:22 UD PRN Chest Pain Nitroglycerin 1 inch 02/05/20 00:00 02/05/20 06:04 Nitroglycerin 2% Ointment 30gm Tube EXT 03/06/20 00:00 1 inch Q6 BRENDON Administration Ondansetron HCl 4 mg 02/04/20 19:23 Ondansetron Inj 2 Mg/Ml 2 Ml Vial IV 03/05/20 19:22 Q6H PRN Nausea Rosuvastatin Calcium 20 mg 02/05/20 09:00 02/05/20 08:14 Rosuvastatin Calcium 20 Mg Tab PO 03/06/20 08:59 20 mg QAM BRENDON Administration Vitamin D 2,000 units 02/05/20 09:00 02/05/20 08:14 Cholecalciferol 1,000 Units 25 Mcg Tab PO 03/06/20 08:59 2,000 units QAM BRENDON Administration PG Care Time/CCT Total # of Minutes Spent Total Time Spent with Patient: Total time spent is greater than 50% in coordination of care (as documented) at patient's floor/unit and/or counseling patient:40 Coding Level of Care Code 97886 Initial Inpt Care Lvl 3 Diagnoses NSTEMI (non-ST elevated myocardial infarction) I21.4 CAD (coronary artery disease) I25.10 Flash pulmonary edema J81.0 HTN (hypertension) I10
--- NOTE | 2020-02-05 09:24 | Pharmacy Report ---
Pharmacy Glycemic Short Note 2 - Date of Service February 05, 2020 - Glycemic Short BSG Results (Last 24 hours): 02/04/20 02/04/20 02/04/20 15:18 19:57 23:57 Glucose 257 H POC Glucose 198 H 169 H 02/05/20 02/05/20 02:59 06:04 Glucose 159 H POC Glucose 140 H OUTPATIENT ANTIDIABETIC REGIMEN: * Novolin 70/30 - 70 units BIDM (varies based on diet) * Metformin 1 g PO BIDM * HbA1c: 6.9% (02/05/20) ASSESSMENT: * KESHA is a 79 year old female presented on evening of 02/03 with acute chest pain and dyspnea * Patient was subsequently diagnosed with NSTEMI * BSGs last evening of 198 and 169 mg/dL * Patient received 20 units of NPH and 5 units of correctional Novolog * AM BSG of 140 mg/dL * NPH 15 units x 1 this AM * Will initiate NPH scale with dinner * Cardiac catheterization completed this morning - diet ordered with lunch PLAN FOR INPATIENT GLYCEMIC CONTROL: * Hold outpatient oral diabetes medications * Basal insulin * NPH 15 units SC x 1 this morning * NPH scale BIDM to provide 25-45 units (see EHR for details) * Bolus insulin * NovoLog per scale ACHS or Q6hrs while NPO * Goal Range: Low 110 mg/dL - High 140 mg/dL * Correction Factor: 25 mg/dL/unit * Nutritional / Prandial insulin per carb ratio of 1 unit per 9 grams CHO consumed PLAN FOR DISCHARGE: * HbA1c of 6.9% suggests good outpatient glycemic control (goal is less than 7% for most adults) * Reasonable to continue outpatient regimen at discharge
[2020-02-05] MEDS ORDERED: FUROSEMIDE 40 MG in SYRINGE 0 ML IV ONE (09:30)
[2020-02-05] MEDS ORDERED: FAMOTIDINE 20 MG in SYRINGE 3 ML IV ONE (09:55)
[2020-02-05] MEDS ORDERED: methylPREDNISolone 60 MG in SYRINGE 0 ML IV STA (09:55)
[2020-02-05] MEDS ORDERED: diphenhydrAMINE 50 MG/ML VIAL IV ONE (09:55)
[2020-02-05] MEDS ORDERED: HEPARIN (PORCINE) 1000 UNIT/ML 10 ML (CATH LAB USE ONLY) ONE (10:01)
[2020-02-05] MEDS ORDERED: niCARdipine HCL INJ 2.5 MG/ML 10 ML AMP ONE (10:01)
[2020-02-05] MEDS ORDERED: MIDAZOLAM HCL 1 MG/ML 2ML VIAL ONE ×2 (10:02→13:44)
[2020-02-05] MEDS ORDERED: fentaNYL citrate 100 MCG/2 ML VIAL ONE ×2 (10:02→13:44)
[2020-02-05] MEDS ORDERED: NITROGLYCERIN/D5W 100MCG/ML 20ML SYR ONE (10:03)
--- NOTE | 2020-02-05 10:09 | XCELERA ---
[id number] \\[id number]
[2020-02-05] MEDS ORDERED: methylPREDNISolone 125 MG/2 ML VIAL ONE (10:10)
[2020-02-05] MEDS ORDERED: diphenhydrAMINE 50 MG/ML VIAL ONE (10:11)
--- NOTE | 2020-02-05 10:46 | Post Anesthesia Assessment ---
Date of Service February 05, 2020 Post Sedation Assessment Vital Signs Temp Pulse Pulse Resp BP BP BP 02/05/20 10:32 79 18 02/05/20 08:18 36.8 C 89 18 140/60 02/05/20 03:04 36.5 C 92 H 21 143/80 H 02/05/20 02:12 02/05/20 00:20 100 H 14 02/04/20 23:52 36.9 C 94 H 19 122/74 02/04/20 19:28 36.3 C L 99 H 143/82 H 02/04/20 18:30 107 H 19 115/81 02/04/20 18:15 110 H 24 148/85 H 02/04/20 18:00 106 H 18 138/83 02/04/20 17:45 109 H 15 140/80 02/04/20 17:30 106 H 22 140/79 02/04/20 17:15 109 H 21 142/90 H 02/04/20 17:06 112 H 22 02/04/20 17:00 116 H 28 H 149/91 H 02/04/20 16:45 115 H 19 148/140 H 02/04/20 16:30 104 H 22 148/96 H 02/04/20 16:25 105 H 20 150/100 H 02/04/20 16:15 103 H 20 158/107 H 02/04/20 16:09 02/04/20 16:00 102 H 21 141/92 H 02/04/20 15:45 104 H 21 157/102 H 02/04/20 15:31 106 H 21 154/92 H 02/04/20 15:20 104 H 24 02/04/20 15:15 106 H 23 165/98 H 02/04/20 15:09 36.9 C 105 H 32 H 164/88 H 02/04/20 15:08 109 H 25 H 164/88 H 02/04/20 15:07 110 H 33 H Pulse Ox 02/05/20 10:32 02/05/20 08:18 92 02/05/20 03:04 90 02/05/20 02:12 94 02/05/20 00:20 93 02/04/20 23:52 88 L 02/04/20 19:28 96 02/04/20 18:30 97 11/30/20 18:15 97 02/04/20 18:00 94 02/04/20 17:45 97 02/04/20 17:30 94 02/04/20 17:15 95 02/04/20 17:06 97 02/04/20 17:00 89 L 02/04/20 16:45 88 L 02/04/20 16:30 97 02/04/20 16:25 98 02/04/20 16:15 97 02/04/20 16:09 96 02/04/20 16:00 96 02/04/20 15:45 96 02/04/20 15:31 99 02/04/20 15:20 95 02/04/20 15:15 96 02/04/20 15:09 97 02/04/20 15:08 97 02/04/20 15:07 94 Recovery Score Activity: Moves 4 extremities Respiration: Deep Breath/Cough Circulation: +/-20% PreAnes Value Consciousness: Fully Awake Oxygen Saturation: > 92% On Room Air Discharge Sedation Level of Care: Fast Track Phase II Post Sedation Plan On clinical assessment, the patient appears to have tolerated the sedation without complications. Patient is recovering as anticipated. Patient will continue to be monitored by nursing and may be discharged when sedation discharge criteria are met per below protocol. Upon Completions of procedure up to 15 minutes continue every 5 minute vital signs and the P.A.R. score; then discharge to a Phase I or Fast Track to Phase II per the following guidelines: * Discharge Patient to appropriate Phase II area if PAR is 8 or greater or return to pre- procedure baseline. The post - procedure orders will be as directed. * If PAR score is less than 8 or not return to pre-procedure baseline then patient will follow Phase I monitoring till PAR is reached for Phase II. The Phase I may be done in procedure room or may call to secure a Phase I area. * If naloxone or flumazenil are used for reversal, hold in Phase I for continued monitoring from when last reversal dose was given for a minimum of 60 minutes or longer pending the nurse and/or physician discretion of patient condition before discharge to Phase II. Please call the Sedation Physician to re-evaluate and complete post-note for discharge to Phase II area. Do NOT discharge from procedure sedation or Phase 1 until post- sedation evaluation note is complete by procedure /sedation MD Sedation Discharge Instructions to be given to the patient at discharge to home.
--- NOTE | 2020-02-05 10:47 | Pre Anesthesia Assessment ---
Date of Service February 05, 2020 Pre Sedation Assessment Vital Signs Temp Pulse Pulse Resp BP BP BP 02/05/20 10:32 79 18 02/05/20 08:18 36.8 C 89 18 140/60 02/05/20 03:04 36.5 C 92 H 21 143/80 H 02/05/20 02:12 02/05/20 00:20 100 H 14 02/04/20 23:52 36.9 C 94 H 19 122/74 02/04/20 19:28 36.3 C L 99 H 143/82 H 02/04/20 18:30 107 H 19 115/81 02/04/20 18:15 110 H 24 148/85 H 02/04/20 18:00 106 H 18 138/83 02/04/20 17:45 109 H 15 140/80 02/04/20 17:30 106 H 22 140/79 02/04/20 17:15 109 H 21 142/90 H 02/04/20 17:06 112 H 22 02/04/20 17:00 116 H 28 H 149/91 H 02/04/20 16:45 115 H 19 148/140 H 02/04/20 16:30 104 H 22 148/96 H 02/04/20 16:25 105 H 20 150/100 H 02/04/20 16:15 103 H 20 158/107 H 02/04/20 16:09 02/04/20 16:00 102 H 21 141/92 H 02/04/20 15:45 104 H 21 157/102 H 02/04/20 15:31 106 H 21 154/92 H 02/04/20 15:20 104 H 24 02/04/20 15:15 106 H 23 165/98 H 02/04/20 15:09 36.9 C 105 H 32 H 164/88 H 02/04/20 15:08 109 H 25 H 164/88 H 02/04/20 15:07 110 H 33 H Pulse Ox 02/05/20 10:32 02/05/20 08:18 92 02/05/20 03:04 90 02/05/20 02:12 94 02/05/20 00:20 93 02/04/20 23:52 88 L 02/04/20 19:28 96 02/04/20 18:30 97 11/30/20 18:15 97 02/04/20 18:00 94 02/04/20 17:45 97 02/04/20 17:30 94 02/04/20 17:15 95 02/04/20 17:06 97 02/04/20 17:00 89 L 02/04/20 16:45 88 L 02/04/20 16:30 97 02/04/20 16:25 98 02/04/20 16:15 97 02/04/20 16:09 96 02/04/20 16:00 96 02/04/20 15:45 96 02/04/20 15:31 99 02/04/20 15:20 95 02/04/20 15:15 96 02/04/20 15:09 97 02/04/20 15:08 97 02/04/20 15:07 94 Cardiovascular + regular rate Respiratory + respiratory effort normal Pre-Sedation Airway Assessment Smoking Status: Never smoker Hx Sleep Apnea: No Hx Difficult Intubation: No Short, Thick Neck: No Thyromental Distance: > or= 3.5 Finger Breadths Oral Cavity: + WNL Mallampati Class: III ASA: ASA3 NPO Status Date of Last Intake of Fluids: 02/05/20 Time of Last Intake of Fluids: 07:30 Date of Last Intake of Solid Food: 02/04/20 Time of Last Intake of Solid Foods: 19:00 Procedure Planning Contraindications for Sedation: none Current Medications Reviewed: Yes Notes The planned sedation has been discussed with the patient. Informed Consent was obtained. I have identified the patient, determined the appropriateness of sedation and have assessed the patient immediately prior to the procedure. All medicine(s) and interventions are by my order.
--- NOTE | 2020-02-05 11:22 | Cardiac Catheterization ---
[facility] Data: Pool Manager Cardiac Status Clinical evaluation leading to the procedure CAD Presenation: Non STEMI Diagnostic Physicians Name: Jose Palacios MD Closure Device Recommendations: CABG Cardiac Cath Procedure Full Procedure Date February 05, 2020 Pre-Procedure Diagnosis Pre-Procedure Diagnosis: Non STEMI AUC Score AUC Score: 8 Post-Procedure Diagnosis Post-Procedure Diagnosis: Severe CAD Procedure(s) Performed Procedure(s) Performed: Coronary Angiography and Left Heart Cath Metrologist Jose Palacios MD Technical Agronomist(s) none Estimated Blood Loss Estimated Blood Loss: 7cc Medication(s) Medication(s): Fentanyl, Heparin, Lidocaine 1%, Nicardipine, Nitroglycerin and Versed Summary of Findings Procedure performed: Left heart catheterization, selective coronary angiography Staff antenna installer: Jose Palacios MD Indication: The patient is a 71-year-old woman with a known history of coronary disease having previously undergone percutaneous intervention to the right coronary and left circumflex arteries in the . She presented yesterday wi th an acute episode of chest pain and dyspnea. She was discovered to have pulmonary edema and was suspected of having an acute coronary syndrome. She had positive biomarkers indicating cardiac injury and was brought to the cardiac catheterization suite today for angiography. Procedure in detail: The patient was informed of the risks benefits and alternatives to the intended procedure. She understood which proceed. She was taken to the cardiac catheterization suite in a fasting state. Conscious sedation was administered per protocol the patient was monitored electrocardiographically throughout today's procedure. The right radial area prepped and draped in usual sterile fashion. The area over the right radial artery was anesthetized using subcutaneous menstruation of lidocaine solution. The right radial artery was accessed using Seldinger technique and sheath was placed over guidewire at this site. The sheath was used facilitate passage of the cardiac catheter for coronary angiography and left heart catheterization. Images were obtained in multiple orthogonal views prior to removal of the catheter and sheath. The patient tolerated procedure well. There were no immediate complications. Equipment used: 5 Yi tiger 4 Findings: Coronary angiography Left main: Left main coronary artery was normal in size and caliber. In its distal portion there was evidence of thrombus. This compromised the ostium of the left circumflex and left anterior descending. Stenosis is estimated at 99%. Left anterior descending: Left anterior descending was a medium size vessel with diffuse luminal irregularities. He was also noted be heavily calcified. The produced a large 1st diagonal branch with a 70% ostial lesion. No obstructive lesions in the distal portion of the vessel Left circumflex: Left circumflex artery was a nondominant vessel. It is also noted to be calcified. There was a stent in its midportion. There was 70% stenosis in the distal portion of the stent. There are luminal irregularities throughout the remainder of this distribution but no additional obstructive lesions. Right coronary: Right coronary artery was a dominant vessel. It had a stent in its distal portion. There was a 60 70% stenosis proximal to the previously placed stent and he 60 70% lesion in the distal portion of the stent prior to the bifurcation of the PLB and PDA branches. Was also a very distal stenosis in the PDA. Impression: Acute coronary syndrome involving the distal left main coronary artery Obstructive coronary disease involving the distal left main, 1st diagonal branch, left circumflex and right coronary artery Right dominant coronary system No evidence of aortic stenosis Normal left ventricular end-diastolic pressure Hemodynamics Rest Ao:: 143/77 mm Hg Final Ao: 145/60 mm of mercury LV: 164/2 mm of mercury, left ventricular end-diastolic pressure 11 mm of mercury Recommendations Recommendations: CABG Specimens Specimens: None Radiation Exposure (mGy) 690 Contrast (mls) Three 5 Procedural Complication(s) None Disposition PCU I attest to the content of the Intraoperative Record and any orders documented therein. Any exceptions are noted below. easy[facility] Card Cath Procedure Codes Cardiac Catheterization Procedure 1: Cardiovascular Cath Procedures: 98023 Coronaries and LHC (+/-LV) PG Care Time/CCT Total # of Minutes Spent Total Time Spent with Patient: Total time spent is greater than 50% in coordination of care (as documented) at patient's floor/unit and/or counseling patient:
[2020-02-05 12:41] LABS: Partial Thromboplastin Ratio 2.2
[2020-02-05 12:42] LABS: Partial Thromboplastin Time 61.8 Seconds (21.0-31.0)
--- NOTE | 2020-02-05 13:27 | Discharge Summary ---
Date of Service February 05, 2020 Admission HPI Per Admitting Provider 79yo female with known h/o CAD s/p 2 stents 1996 (RCA and L Cx) - followed by Dr Wenceslao Darby [facility] [place] [place] Cardiology - presents with acute onset of chest pain/dyspnea. [place] the [place], and upon arrival back at her home, she developed the chest pain/dyspnea. Chest pain was b/l chest. No radiation to the arm or jaw. Described it as a "squeeze". Pain was very severe. She could not find her nitroglycerin for the pain. 911 was called and EMS was summoned to her home. In the ambulance she was placed on BIPAP for respiratory distress and given 3 SL nitro tabs. The BIPAP and SL nitro helped her dyspnea and chest pain. i Upon arrival to [facility] she had a positive troponin and CXR showed pulmonary edema. Lasix 40mg IV x 1 was given. Had elevated BP and thus was given nitropaste 1" in the ER for her blood pre ssure and chest pain. During my assessment she was chest pain free and breathing was more comfortable. Patient mentions that for 1-2 months she has had intermittent chest pain with dyspnea occurring about every 3-4 days. Episodes were exertional and would last 3-4 minutes then self-resolve with rest. She never tried SL nitro for these. Principal Diagnosis Severe CAD, Acute systolic CHF, Acute respiratory failure with hypoxia Discharge Exam Constitutional WD/WN, vitals as above Eyes + anicteric sclerae Neck trachea midline, no thyromegaly Respiratory normal respiratory effort Auscultation: + crackles (at bases bilat); no rhonchi and no wheezes Cardiovascular RRR, no murmur, no edema Chest (Breasts) Chest: normal inspection of chest Gastrointestinal (Abdomen) normal bowel sounds, soft, nontender, no hepatosplenomegaly Musculoskeletal Extremities: extremities normal to inspection; no cyanosis and no clubbing Skin no rashes, warm and dry Neurologic moves all extremities and awake; no focal motor deficits Psychiatric A+Ox3, euthymic affect Lymphatic no lymphedema Discharge Data Allergies Allergy/AdvReac Type Severity Reaction Status Date / Time bee venom protein (honey bee) Allergy Unknown SWELLING Verified 02/04/20 17:20 WITH BEE STING/WASP Iodinated Contrast Media Allergy Unknown HIVES Verified 02/04/20 17:20 Macrolide Antibiotics Allergy Unknown MYCIN Verified 02/04/20 17:20 TOPICAL-RASH morphine Allergy Unknown NAUSEA AND Verified 02/04/20 17:20 VOMITING naproxen Allergy Unknown RED AND Verified 02/04/20 17:20 PRICKLY HANDS neomycin Allergy Unknown MYCIN Verified 02/04/20 17:20 TOPICAL-RASH codeine AdvReac Mild NAUSEA Verified 02/04/20 17:20 Consultations 02/04/20 16:56 ED Decision to Admit Stat 02/04/20 19:23 Consult Cardiology Routine 02/05/20 13:22 Burn CD for patient Stat Procedures Performed Operation Date: 02/05/20 10:30 Actual Procedures p Cath, Left with Cors and Vent - Rhys Palacios MD s Cineradiography w/Routine Exam - Rhys Palacios MD Operation Date: 02/05/20 13:30 <No data on this case meets the specified criteria> Ordered Studies 02/05/20 09:57 CL Cath Imgs for PACS use only Stat 02/05/20 13:24 CL Cath Imgs for PACS use only Routine CXR Hospital Course (1) Acute respiratory failure with hypoxia: 2nd to flash pulmonary edema/acute CHF in setting of NSTEMI. Initially on BIPAP and weaned to 5L via Oxymask with diuresis and nitropaste continue to Diurese. Wean O2 as tolerated. Of note - COVID-19, flu, and RSV negative. Doubt infectious cause of hypoxia. (2) NSTEMI (non-ST elevated myocardial infarction): Symptoms, EKG findings, and elevated troponin all consistent with NSTEMI. Placed on heparin infusion. and Topical nitrates applied. Continue beta vj. Change statin from 10mg qod to 20mg daily of Crestor. Cardiac cath showed distal left main disease--> referred to [facility] for CABG. Accepting physician at [facility] is Dr. Michelle and Dr. Michelle requested aortic balloon pump be placed prior to transport Continue aspirin, heparin gtt. (3) Acute CHF: 2nd to flash pulmonary edema in setting of NSTEMI. Lasix IV given x 2 with good diuresis ECHO pending but with need for aortic balloon pump prior to transport for CABG as above Continue beta vj. Resume ARB if BPs will allow. Continue topical nitrates. (4) CAD (coronary artery disease): Known CAD with prior stent placement in the late at [facility]. No heart cath since that time. See "NSTEMI" above. (5) DM (diabetes mellitus): hemoglobin a1c here well controlled at 6.9% Check BSGs q6h while NPO. Novolog SSI (6) Hyperlipidemia: Check lipids Change crestor from qod dosing to daily and increase to 20mg. (7) Hypomagnesemia: chronic. 2nd to diarrhea? renal wasting? other? mag sulfate IV given -continue home po magnesium follow mag level am. (8) Hyperkalemia: 2nd to ABHIJEET in setting of acute CHF/NSTEMI. Lasix given and improved (9) Acute kidney injury: 2nd to prerenal physiology -- acute CHF/NSTEMI leading to hypoperfusion. telecommunications field engineer improved down to 1.37 after IV lasix follow BMP (10) DVT prophylaxis: heparin infusion. Dispo-transfer urgently to [facility] Total Time Total Time Spent Total Time Spent (In Minutes): 45 min Total Time Includes: Examination of the Patient, Discharge Planning, Medication Reconciliation and Communication With Other Providers (Cardiology) Discharge Plan Discharge Items Patient Disposition: Transfer Acute [facility] Reason For Visit: NSTEMI,ACUTE CHF Discharge Diagnosis: NSTEMI, Severe CAD, Acute systolic CHF, Acute respiratory failure with hypoxia Condition on Discharge: Critical Activity: As commented below Lifting: None Exercise/Sports: Rest today Non-emergency contact: Primary Care Provider and Salt Manager Call non-emergency contact if: you have any medication questions and your symptoms worsen Follow-up/Referrals: Randi Kraft MD [Primary Care Provider] - Diet: Nothing by Mouth Addtl Attending Provider Instructions: Transferred to [facility] for CABG Pending Studies at Discharge: No Stand-Alone Forms: My [facility] Skilled Items Patient informed of condition?: Yes DNR: No Discharge Level of Care: Other Communicable Disease: No Discharge Prognosis: Stable Lines: Peripheral IV Urinary Catheter: Yes Medications and DC Order Prescriptions: New Nitro-Bid 2 % Ointment 1 inch EXT Q6 Qty: 15 RF: 0 rosuvastatin [Crestor] 20 mg Tablet 20 mg PO QAM Qty: 30 RF: 0 Continued (DME) OneTouch Ultra Blue Test Strip strip See Dose Instructions .ROUTE .MEDSUPPLY Qty: 100 RF: 1 metronidazole 1 % gel 1 appln topical .COMPLEX PRN (Reason: rosacea) Qty: 60 RF: 1 (DME) insulin syringe-needle U-100 [Ultra Comfort Insulin Syringe] 1 mL 31 gauge x 5/16 syringe See Dose Instructions .ROUTE .MEDSUPPLY Qty: 200 RF: 3 losartan 50 mg tablet 50 mg PO QAM Qty: 90 RF: 3 metoprolol succinate 200 mg tablet extended release 24 hr 200 mg PO QAM Qty: 90 RF: 3 aspirin 325 mg tablet,delayed release (DR/EC) 325 mg PO QAM RF: 0 cholecalciferol (vitamin D3) 2,000 unit tablet 2,000 units PO QAM RF: 0 magnesium chloride 64 mg tablet,delayed release (DR/EC) 128 mg PO BID Qty: 120 RF: 0 nitroglycerin 0.4 mg tablet, sublingual 0.4 mg SL UD PRN (Reason: chest pain) Qty: 2 RF: 0 Novolin 70/30 U-100 Insulin 100 unit/mL (70-30) suspension 0 units SQ BID RF: 0 Discontinued rosuvastatin 10 mg tablet 10 mg PO Q2D Qty: 45 RF: 3 metformin 1,000 mg tablet 1,000 mg PO BID Qty: 180 RF: 1 Discharge Orders: Discharge Order (Routine); Ordered 02/05/20 Ordered By: Sheila Hassan/Other Patient Handouts: Managing Type 2 Diabetes, Eating Heart-Healthy Foods Admission Data Admit Date/Time: 02/04/20 18:06 Attending Provider: Sheila Fried Admit Provider: Wally Del Valle Primary Care Provider: Randi Kraft Other Providers: Wally Del Valle ; Rhys Palacios Coding Level of Care Code D/C Day Management >30 mins Diagnoses Acute respiratory failure with hypoxia J96.01 NSTEMI (non-ST elevated myocardial infarction) I21.4 Acute CHF I50.9 CAD (coronary artery disease) I25.10 DM (diabetes mellitus) E11.9 Hyperlipidemia E78.5 Hypomagnesemia E83.42 Hyperkalemia E87.5 Acute kidney injury N17.9 DVT prophylaxis Z29.9
--- NOTE | 2020-02-05 14:05 | Pre Anesthesia Assessment ---
Date of Service February 05, 2020 Pre Sedation Assessment Vital Signs Temp Pulse Pulse Resp BP BP BP 02/05/20 12:37 36.8 C 80 20 138/71 02/05/20 12:07 80 20 128/74 02/05/20 11:37 82 20 132/72 02/05/20 11:35 86 18 162/91 H 02/05/20 11:22 85 20 134/75 02/05/20 11:20 88 18 139/93 02/05/20 10:32 79 18 02/05/20 08:18 36.8 C 89 18 140/60 02/05/20 03:04 36.5 C 92 H 21 143/80 H 02/05/20 02:12 02/05/20 00:20 100 H 14 02/04/20 23:52 36.9 C 94 H 19 122/74 02/04/20 19:28 36.3 C L 99 H 143/82 H 02/04/20 18:30 107 H 19 115/81 02/04/20 18:15 110 H 24 148/85 H 02/04/20 18:00 106 H 18 138/83 02/04/20 17:45 109 H 15 140/80 02/04/20 17:30 106 H 22 140/79 02/04/20 17:15 109 H 21 142/90 H 02/04/20 17:06 112 H 22 02/04/20 17:00 116 H 28 H 149/91 H 02/04/20 16:45 115 H 19 148/140 H 02/04/20 16:30 104 H 22 148/96 H 02/04/20 16:25 105 H 20 150/100 H 02/04/20 16:15 103 H 20 158/107 H 02/04/20 16:09 02/04/20 16:00 102 H 21 141/92 H 02/04/20 15:45 104 H 21 157/102 H 02/04/20 15:31 106 H 21 154/92 H 02/04/20 15:20 104 H 24 02/04/20 15:15 106 H 23 165/98 H 02/04/20 15:09 36.9 C 105 H 32 H 164/88 H 02/04/20 15:08 109 H 25 H 164/88 H 02/04/20 15:07 110 H 33 H Pulse Ox 02/05/20 12:37 92 02/05/20 12:07 94 02/05/20 11:37 92 02/05/20 11:35 95 02/05/20 11:22 92 02/05/20 11:20 92 02/05/20 10:32 02/05/20 08:18 92 02/05/20 03:04 90 02/05/20 02:12 94 02/05/20 00:20 93 02/04/20 23:52 88 L 02/04/20 19:28 96 02/04/20 18:30 97 02/04/20 18:15 97 02/04/20 18:00 94 02/04/20 17:45 97 02/04/20 17:30 94 02/04/20 17:15 95 02/04/20 17:06 97 02/04/20 17:00 89 L 02/04/20 16:45 88 L 02/04/20 16:30 97 02/04/20 16:25 98 02/04/20 16:15 97 02/04/20 16:09 96 02/04/20 16:00 96 02/04/20 15:45 96 02/04/20 15:31 99 02/04/20 15:20 95 02/04/20 15:15 96 02/04/20 15:09 97 02/04/20 15:08 97 02/04/20 15:07 94 Cardiovascular + regular rate Respiratory + respiratory effort normal Pre-Sedation Airway Assessment Smoking Status: Never smoker Hx Sleep Apnea: No Hx Difficult Intubation: No Short, Thick Neck: No Thyromental Distance: > or= 3.5 Finger Breadths Oral Cavity: + WNL Mallampati Class: III ASA: ASA3 NPO Status Date of Last Intake of Fluids: 02/05/20 Time of Last Intake of Fluids: 07:30 Date of Last Intake of Solid Food: 02/04/20 Time of Last Intake of Solid Foods: 19:00 Procedure Planning Contraindications for Sedation: none Current Medications Reviewed: Yes Notes The planned sedation has been discussed with the patient. Informed Consent was obtained. I have identified the patient, determined the appropriateness of sedation and have assessed the patient immediately prior to the procedure. All medicine(s) and interventions are by my order.
--- NOTE | 2020-02-05 15:04 | Pre Anesthesia Assessment ---
Date of Service February 05, 2020 Pre Sedation Assessment Vital Signs Temp Pulse Pulse Resp BP BP BP 02/05/20 14:45 73 17 02/05/20 14:30 74 17 02/05/20 12:37 98.2 F 80 20 138/71 02/05/20 12:07 80 20 128/74 02/05/20 11:37 82 20 132/72 02/05/20 11:35 86 18 162/91 H 02/05/20 11:22 85 20 134/75 02/05/20 11:20 88 18 139/93 02/05/20 10:32 79 18 02/05/20 08:18 98.2 F 89 18 140/60 02/05/20 03:04 97.7 F 92 H 21 143/80 H 02/05/20 02:12 02/05/20 00:20 100 H 14 02/04/20 23:52 98.4 F 94 H 19 122/74 02/04/20 19:28 97.3 F L 99 H 143/82 H 02/04/20 18:30 107 H 19 115/81 02/04/20 18:15 110 H 24 148/85 H 02/04/20 18:00 106 H 18 138/83 02/04/20 17:45 109 H 15 140/80 02/04/20 17:30 106 H 22 140/79 02/04/20 17:15 109 H 21 142/90 H 02/04/20 17:06 112 H 22 02/04/20 17:00 116 H 28 H 149/91 H 02/04/20 16:45 115 H 19 148/140 H 02/04/20 16:30 104 H 22 148/96 H 02/04/20 16:25 105 H 20 150/100 H 02/04/20 16:15 103 H 20 158/107 H 02/04/20 16:09 02/04/20 16:00 102 H 21 141/92 H 02/04/20 15:45 104 H 21 157/102 H 02/04/20 15:31 106 H 21 154/92 H 02/04/20 15:20 104 H 24 02/04/20 15:15 106 H 23 165/98 H 02/04/20 15:09 98.4 F 105 H 32 H 164/88 H 02/04/20 15:08 109 H 25 H 164/88 H 02/04/20 15:07 110 H 33 H BP Pulse Ox 02/05/20 14:45 90/50 L 96 02/05/20 14:30 107/49 L 95 02/05/20 12:37 92 02/05/20 12:07 94 02/05/20 11:37 92 02/05/20 11:35 95 02/05/20 11:22 92 02/05/20 11:20 92 02/05/20 10:32 02/05/20 08:18 92 02/05/20 03:04 90 02/05/20 02:12 94 02/05/20 00:20 93 02/04/20 23:52 88 L 02/04/20 19:28 96 02/04/20 18:30 97 02/04/20 18:15 97 02/04/20 18:00 94 02/04/20 17:45 97 02/04/20 17:30 94 02/04/20 17:15 95 02/04/20 17:06 97 02/04/20 17:00 89 L 02/04/20 16:45 88 L 02/04/20 16:30 97 02/04/20 16:25 98 02/04/20 16:15 97 02/04/20 16:09 96 02/04/20 16:00 96 02/04/20 15:45 96 02/04/20 15:31 99 02/04/20 15:20 95 02/04/20 15:15 96 02/04/20 15:09 97 02/04/20 15:08 97 02/04/20 15:07 94 Cardiovascular RRR, no murmur, no edema Respiratory normal respiratory effort, lungs clear to auscultation Pre-Sedation Airway Assessment Smoking Status: Never smoker Hx Sleep Apnea: No Hx Difficult Intubation: No Short, Thick Neck: No Thyromental Distance: > or= 3.5 Finger Breadths Oral Cavity: + WNL Mallampati Class: III ASA: ASA3 NPO Status Date of Last Intake of Fluids: 02/05/20 Time of Last Intake of Fluids: 07:30 Date of Last Intake of Solid Food: 02/04/20 Time of Last Intake of Solid Foods: 19:00 Procedure Planning Contraindications for Sedation: none Current Medications Reviewed: Yes Notes The planned sedation has been discussed with the patient. Informed Consent was obtained. I have identified the patient, determined the appropriateness of sedation and have assessed the patient immediately prior to the procedure. All medicine(s) and interventions are by my order.
--- NOTE | 2020-02-05 15:05 | Post Anesthesia Assessment ---
Date of Service February 05, 2020 Post Sedation Assessment Vital Signs Temp Pulse Pulse Resp BP BP BP 02/05/20 15:00 72 17 02/05/20 14:45 73 17 02/05/20 14:30 74 17 02/05/20 12:37 98.2 F 80 20 138/71 02/05/20 12:07 80 20 128/74 02/05/20 11:37 82 20 132/72 02/05/20 11:35 86 18 162/91 H 02/05/20 11:22 85 20 134/75 02/05/20 11:20 88 18 139/93 02/05/20 10:32 79 18 02/05/20 08:18 98.2 F 89 18 140/60 02/05/20 03:04 97.7 F 92 H 21 143/80 H 02/05/20 02:12 02/05/20 00:20 100 H 14 02/04/20 23:52 98.4 F 94 H 19 122/74 02/04/20 19:28 97.3 F L 99 H 143/82 H 02/04/20 18:30 107 H 19 115/81 02/04/20 18:15 110 H 24 148/85 H 02/04/20 18:00 106 H 18 138/83 02/04/20 17:45 109 H 15 140/80 02/04/20 17:30 106 H 22 140/79 02/04/20 17:15 109 H 21 142/90 H 02/04/20 17:06 112 H 22 02/04/20 17:00 116 H 28 H 149/91 H 02/04/20 16:45 115 H 19 148/140 H 02/04/20 16:30 104 H 22 148/96 H 02/04/20 16:25 105 H 20 150/100 H 02/04/20 16:15 103 H 20 158/107 H 02/04/20 16:09 02/04/20 16:00 102 H 21 141/92 H 02/04/20 15:45 104 H 21 157/102 H 02/04/20 15:31 106 H 21 154/92 H 02/04/20 15:20 104 H 24 02/04/20 15:15 106 H 23 165/98 H 02/04/20 15:09 98.4 F 105 H 32 H 164/88 H 02/04/20 15:08 109 H 25 H 164/88 H 02/04/20 15:07 110 H 33 H BP Pulse Ox 02/05/20 15:00 99/53 L 96 02/05/20 14:45 90/50 L 96 02/05/20 14:30 107/49 L 95 02/05/20 12:37 92 02/05/20 12:07 94 02/05/20 11:37 92 02/05/20 11:35 95 02/05/20 11:22 92 02/05/20 11:20 92 02/05/20 10:32 02/05/20 08:18 92 02/05/20 03:04 90 02/05/20 02:12 94 02/05/20 00:20 93 02/04/20 23:52 88 L 02/04/20 19:28 96 02/04/20 18:30 97 02/04/20 18:15 97 02/04/20 18:00 94 02/04/20 17:45 97 02/04/20 17:30 94 02/04/20 17:15 95 02/04/20 17:06 97 02/04/20 17:00 89 L 02/04/20 16:45 88 L 02/04/20 16:30 97 02/04/20 16:25 98 02/04/20 16:15 97 02/04/20 16:09 96 02/04/20 16:00 96 02/04/20 15:45 96 02/04/20 15:31 99 02/04/20 15:20 95 02/04/20 15:15 96 02/04/20 15:09 97 02/04/20 15:08 97 02/04/20 15:07 94 Recovery Score Activity: Moves 4 extremities Respiration: Deep Breath/Cough Circulation: +/-20% PreAnes Value Consciousness: Fully Awake Oxygen Saturation: > 92% On Room Air Post Anesthesia Score: 10 Discharge Sedation Level of Care: Fast Track Phase II Post Sedation Plan On clinical assessment, the patient appears to have tolerated the sedation without complications. Patient is recovering as anticipated. Patient will continue to be monitored by nursing and may be discharged when sedation discharge criteria are met per below protocol. Upon Completions of procedure up to 15 minutes continue every 5 minute vital signs and the P.A.R. score; then discharge to a Phase I or Fast Track to Phase II per the following guidelines: * Discharge Patient to appropriate Phase II area if PAR is 8 or greater or return to pre- procedure baseline. The post - procedure orders will be as directed. * If PAR score is less than 8 or not return to pre-procedure baseline then patient will follow Phase I monitoring till PAR is reached for Phase II. The Phase I may be done in procedure room or may call to secure a Phase I area. * If naloxone or flumazenil are used for reversal, hold in Phase I for continued monitoring from when last reversal dose was given for a minimum of 60 minutes or longer pending the nurse and/or physician discretion of patient condition before discharge to Phase II. Please call the Sedation Physician to re-evaluate and complete post-note for discharge to Phase II area. Do NOT discharge from procedure sedation or Phase 1 until post- sedation evaluation note is complete by procedure /sedation MD Sedation Discharge Instructions to be given to the patient at discharge to home.
--- NOTE | 2020-02-05 15:25 | Cardiac Catheterization ---
ACC Data: [employer] Cardiac Status Clinical evaluation leading to the procedure CAD Presenation: Non STEMI Anginal Classification: CCS IV Heart Failure: NYHA Class: CCS IV Cardiogenic Shock within 24 Hours: No Cardiac Arrest within 24 Hours: No Imaging Studies Past 6 Months: Yes Stress Studies Past 6 Months: No Diagnostic Physicians Name: Jsoe Patrick MD Status: Urgent Closure Device Percutaneous Entry Location: Femoral Recommendations: CABG Intraprocedure Events Significant Disection: No Perforation: No Cardiac Cath Procedure Full Procedure Date February 05, 2020 Pre-Procedure Diagnosis Pre-Procedure Diagnosis: Non STEMI AUC Score AUC Score: 8 Post-Procedure Diagnosis Post-Procedure Diagnosis: Severe CAD Procedure(s) Performed Procedure(s) Performed: Coronary Angiography and Left Heart Cath Rn Document Improvement Specialist Jose Patrick MD Gold Assayer(s) none Estimated Blood Loss Estimated Blood Loss: 7cc Medication(s) Medication(s): Fentanyl, Heparin, Lidocaine 1%, Nicardipine, Nitroglycerin and Versed Summary of Findings Indication: Critical left main disease Procedure: Right common femoral artery access under ultrasound guidance, short 8 Fr sheath placed Under fluoroscopic guidance IABP placed to descending thoracic aorta IABP 1:1 augmentation to the 130s. Sheath, device sutured and secured in place Summary: 1. Successful IABP placement via right VOCATIONAL NURSE LVN Hemodynamics Rest Ao:: -- Final Ao: -- LV: -- Recommendations Recommendations: CABG Specimens Specimens: None Radiation Exposure (mGy) -- Contrast (mls) -- Anesthesia moderate Procedural Complication(s) None Disposition ICU I attest to the content of the Intraoperative Record and any orders documented therein. Any exceptions are noted below. [facility] [place] Procedure Codes Therapeutic Services & Ancillary Proc Procedure 1: Cardiovascular Tx and Anc Procedures: 31866 IABP Insertion Procedure 2: Cardiovascular Tx and Anc Procedures: 33526 Ultrasonic Guidance Vascular Access Moderate Sedation Procedure 1: Sedation/Anesthesia: 48402 Mod Sedation by the same physician;Init15 Min Child Age 5 & Up PG Care Time/CCT Total # of Minutes Spent Total Time Spent with Patient: Total time spent is greater than 50% in coordination of care (as documented) at patient's floor/unit and/or counseling patient:
--- NOTE | 2020-02-05 15:28 | Electrocardiogram Report ---
Test Reason : Blood Pressure : / mmHG Vent. Rate : 091 BPM Atrial Rate : 091 BPM P-R Int : 158 ms QRS Dur : 084 ms QT Int : 404 ms P-R-T Axes : 062 031 176 degrees QTc Int : 496 ms Normal sinus rhythm Prolonged QT Abnormal ECG When compared with ECG of 04-FEB-2020 15:06, ST less depressed in Inferior leads ST less depressed in Anterior leads Confirmed by Jose Palacios ([id number]) on 02/05/2020 3:27:59 PM Referred By: REFERRED SELF Confirmed By:Puneet Palacios
[2020-02-05] MEDS ORDERED: INSULIN ASPART 100 UNITS/ML 3 ML PEN SC SCH (16:30)
[2020-02-05] MEDS ORDERED: INSULIN HUMAN NPH SC SCH (17:00)
[2020-02-06] MEDS ORDERED: INSULIN ASPART 100 UNITS/ML 3 ML PEN SC SCH (02:00)
== END 2020-02-05 16:59 | disposition short-term general hospital (02) | DRG 270 ==
LOC: ED 15:00 → SUATTDRO 18:06 → 2S 18:06 → 1E 02-05 15:52